=== PATIENT | female | born 1925 | race Caucasian/White ===

== ENCOUNTER 2017-01-12 20:19 | Inpatient (IN) | payer MEDICARE ==
--- NOTE | 2017-01-12 20:30 | ED ---
General Adult HPI - General Source: EMS Mode of arrival: EMS Limitations: no limitations <Heber Car - Last Filed: 01/12/17 20:41> <Emiliano Martinez - Last Filed: 01/12/17 21:47> - General Chief complaint: Shortness of Breath Stated complaint: PHUONG Time Seen by Provider: 01/12/17 20:20 - History of Present Illness Initial comments: 89-year-old female limited historian presents via EMS with shortness of breath. Per the old chart she has had a history of dementia hypertension and asthma. She's also had a history of hypothyroidism. From the report from EMS. Patient has had a history of cough for several days worsening treated with updrafts when he came in they found her to be short of breath she received 2 treatments and was given an IV dose of Solu-Medrol. Is unknown whether she's had a fever or not. Also history of atrial fibrillation the past (Heber Car) - Related Data Home Medications Medication Instructions Recorded Confirmed risperiDONE [RisperDAL] 1 mg PO HS 04/20/14 01/12/17 Budesonide [Pulmicort] 0.5 mg INHALATION RT-BID 03/16/15 01/12/17 Allopurinol [Zyloprim] 100 mg PO DAILY 11/26/15 01/12/17 PARoxetine HCL [Paxil] 30 mg PO HS 11/26/15 01/12/17 Pravastatin Sodium [Pravachol] 40 mg PO HS 11/26/15 06/09/16 Montelukast Sodium [Singulair] 10 mg PO HS 12/27/15 01/12/17 Levothyroxine Sodium [Synthroid] 75 mcg PO DAILY 05/20/16 01/12/17 Polyethylene Glycol 3350 17 gram PO DAILY 05/20/16 01/12/17 Metoprolol Succinate (ER) [Toprol 12.5 mg PO DAILY 06/09/16 01/12/17 XL] Aspirin 325 mg PO DAILY 01/12/17 01/12/17 Docusate [Colace] 100 mg PO DAILY 01/12/17 01/12/17 LORazepam [Ativan] 0.5 mg PO Q4H PRN 01/12/17 01/12/17 Omeprazole 20 mg PO DAILY 01/12/17 01/12/17 SILVER sulfADIAZINE CREAM 1 applic TOPICAL BID 01/12/17 01/12/17 [Silvadene Cream] guaiFENesin SYRUP 100MG/5ML 200 mg PO 01/12/17 [Robitussin] Previous Rx's Medication Instructions Recorded Apixaban [Eliquis] 2.5 mg PO BID #60 tablet 03/20/15 Azithromycin [Zithromax Z-pack] 0 mg PO DIRECTED #6 tab 06/11/16 Allergies Allergy/AdvReac Type Severity Reaction Status Date / Time codeine Allergy Rash/Hives Verified 06/09/16 19:40 Review of Systems ROS Other: All systems not noted in ROS Statement are negative. Limitations: ROS unobtainable due to patients medical condition <Heber Car - Last Filed: 01/12/17 20:41> ROS Other: All systems not noted in ROS Statement are negative. <Emiliano Martinez - Last Filed: 01/12/17 21:47> ROS Statement: Those systems with pertinent positive or pertinent negative responses have been documented in the HPI. Past Medical History Past Medical History: Asthma, CVA/TIA, Dementia, GERD/Reflux, Hearing Disorder / Deafness, Hyperlipidemia, Hypertension, Memory Impairment, Osteoarthritis (OA) , Pneumonia, Renal Disease, Respiratory Disorder, Skin Disorder, Syncope, Thyroid Disorder Additional Past Medical History / Comment(s): bronchitis, emphysema,arthritis in hands, tia x2, ckd/renal failure(per old hx-seizure), pulmonary fibrosis, SKIN CA TO LEFT UPPER ARM '15, FREQUENT UTI, HARD OF HEARING, BROKEN TEETH, GOUT History of Any Multi-Drug Resistant Organisms: None Reported Past Surgical History: Adenoidectomy, Appendectomy, Hysterectomy, Tonsillectomy Additional Past Surgical History / Comment(s): cataract sx rafael, SKIN CA REMOVED FROM LEFT UPPER ARM IN 2014 Past Anesthesia/Blood Transfusion Reactions: No Reported Reaction Additional Past Anesthesia/Blood Transfusion Reaction / Comment(s): claustraphobic Past Psychological History: No Psychological Hx Reported Additional Psychological History / Comment(s): dementia, PER PT'S DAUGHTER NO DX OF DEPRESSION BUT PT SLEEPS 19 OUT OF 24 HOURS A DAY,FALLS SLEEP WHEN UP IN CHAIR AND DROOLS A LOT. PT LIVES WITH DAUGHTER AND WAS GETTING UP WITH A 4 PRONG CANE AND W/C FOR DISTANCE. Smoking Status: Former smoker Past Alcohol Use History: Occasional Additional Past Alcohol Use History / Comment(s): started smoking at age 42 quit at age 62, used to smoke 1 ppd Past Drug Use History: None Reported - Past Family History Mother History Unknown: Yes Son(s) Family Medical History: Hypertension Sister(s) History Unknown: Yes Father Family Medical History: CVA/TIA <Heber Car - Last Filed: 01/12/17 20:41> General Exam Limitations: altered mental status (Dementia is not oriented to the place or time) General appearance: alert Head exam: Present: atraumatic Eye exam: Present: PERRL, EOMI ENT exam: Present: normal oropharynx, mucous membranes dry Neck exam: Present: normal inspection Respiratory exam: Present: wheezes, rales Cardiovascular Exam: Present: regular rate, tachycardia, normal heart sounds GI/Abdominal exam: Present: soft. Absent: tenderness, guarding Neurological exam: Present: alert, CN II-XII intact Psychiatric exam: Present: flat affect Skin exam: Present: warm, dry <Heber Car - Last Filed: 01/12/17 20:41> Medical Decision Making - EKG Data -: EKG Interpreted by Me <Heber Car - Last Filed: 01/12/17 20:41> - Lab Data Result diagrams: 01/12/17 20:37 01/12/17 20:37 <Emiliano Martinez - Last Filed: 01/12/17 21:47> - Medical Decision Making Chest x-ray shows upper lobe and middle lobe density on the right. I spoke with Dr. Hughes admitted the patient for pneumonia and wrote admitting orders. Continued Levaquin on the floor after given initial dose in the ER ( Emiliano Martinez) - Lab Data Lab Results 01/12/17 01/12/17 01/12/17 Range/Units 20:37 20:37 20:37 WBC 7.8 (3.8-10.6) k/uL RBC 3.49 L (3.80-5.40) m/uL Hgb 9.0 L (11.4-16.0) gm/dL Hct 30.5 L (34.0-46.0) % MCV 87.5 (80.0-100.0) fL MCH 25.7 (25.0-35.0) pg MCHC 29.4 L (31.0-37.0) g/dL RDW 15.1 (11.5-15.5) % Plt Count 219 (150-450) k/uL Neutrophils % 83 % Lymphocytes % 7 % Monocytes % 5 % Eosinophils % 1 % Basophils % 0 % Neutrophils # 6.5 (1.3-7.7) k/uL Lymphocytes # 0.5 L (1.0-4.8) k/uL Monocytes # 0.4 (0-1.0) k/uL Eosinophils # 0.1 (0-0.7) k/uL Basophils # 0.0 (0-0.2) k/uL Hypochromasia Marked PT (9.0-12.0) sec INR (<1.1) APTT (22.0-30.0) sec Sodium 139 (137-145) mmol/L Potassium 4.6 (3.5-5.1) mmol/L Chloride 100 (98-107) mmol/L Carbon Dioxide 30 (22-30) mmol/L Anion Gap 9 mmol/L BUN 20 H (7-17) mg/dL Creatinine 1.10 H (0.52-1.04) mg/dL Est GFR (MDRD) Af Amer 57 (>60 ml/min/1.73 sqM) Est GFR (MDRD) Non-Af 47 (>60 ml/min/1.73 sqM) Glucose 125 H (74-99) mg/dL Calcium 8.9 (8.4-10.2) mg/dL Total Bilirubin 0.3 (0.2-1.3) mg/dL AST 22 (14-36) U/L ALT 40 (9-52) U/L Alkaline Phosphatase 105 (38-126) U/L Total Creatine Kinase 64 (30-135) U/L CK-MB (CK-2) 0.8 (0.0-2.4) ng/mL CK-MB (CK-2) Rel Index 1.3 Troponin I <0.012 (0.000-0.034) ng/mL NT-Pro-B Natriuret Pep pg/mL Total Protein 6.6 (6.3-8.2) g/dL Albumin 3.5 (3.5-5.0) g/dL Urine Color Urine Appearance (Clear) Urine pH (5.0-8.0) Ur Specific [place] (1.001-1.035) Urine Protein (Negative) Urine Glucose (UA) (Negative) Urine Ketones (Negative) Urine Blood (Negative) Urine Nitrate (Negative) Urine Bilirubin (Negative) Urine Urobilinogen (<2.0) mg/dL Ur Leukocyte Esterase (Negative) Urine RBC (0-5) /hpf Urine WBC (0-5) /hpf Amorphous Sediment (None) /hpf Influenza Type A RNA (Not Detectd) Influenza Type B (PCR) (Not Detectd) 01/12/17 01/12/17 01/12/17 Range/Units 20:37 20:37 20:45 WBC (3.8-10.6) k/uL RBC (3.80-5.40) m/uL Hgb (11.4-16.0) gm/dL Hct (34.0-46.0) % MCV (80.0-100.0) fL MCH (25.0-35.0) pg MCHC (31.0-37.0) g/dL RDW (11.5-15.5) % Plt Count (150-450) k/uL Neutrophils % % Lymphocytes % % Monocytes % % Eosinophils % % Basophils % % Neutrophils # (1.3-7.7) k/uL Lymphocytes # (1.0-4.8) k/uL Monocytes # (0-1.0) k/uL Eosinophils # (0-0.7) k/uL Basophils # (0-0.2) k/uL Hypochromasia PT 10.3 (9.0-12.0) sec INR 1.0 (<1.1) APTT 23.4 (22.0-30.0) sec Sodium (137-145) mmol/L Potassium (3.5-5.1) mmol/L Chloride (98-107) mmol/L Carbon Dioxide (22-30) mmol/L Anion Gap mmol/L BUN (7-17) mg/dL Creatinine (0.52-1.04) mg/dL Est GFR (MDRD) Af Amer (>60 ml/min/1.73 sqM) Est GFR (MDRD) Non-Af (>60 ml/min/1.73 sqM) Glucose (74-99) mg/dL Calcium (8.4-10.2) mg/dL Total Bilirubin (0.2-1.3) mg/dL AST (14-36) U/L ALT (9-52) U/L Alkaline Phosphatase (38-126) U/L Total Creatine Kinase (30-135) U/L CK-MB (CK-2) (0.0-2.4) ng/mL CK-MB (CK-2) Rel Index Troponin I (0.000-0.034) ng/mL NT-Pro-B Natriuret Pep 637 pg/mL Total Protein (6.3-8.2) g/dL Albumin (3.5-5.0) g/dL Urine Color Yellow Urine Appearance Clear (Clear) Urine pH 6.5 (5.0-8.0) Ur Specific [place] 1.012 (1.001-1.035) Urine Protein 1+ H (Negative) Urine Glucose (UA) 1+ H (Negative) Urine Ketones Negative (Negative) Urine Blood Trace H (Negative) Urine Nitrate Negative (Negative) Urine Bilirubin Negative (Negative) Urine Urobilinogen <2.0 (<2.0) mg/dL Ur Leukocyte Esterase Negative (Negative) Urine RBC 4 (0-5) /hpf Urine WBC 1 (0-5) /hpf Amorphous Sediment Rare H (None) /hpf Influenza Type A RNA (Not Detectd) Influenza Type B (PCR) (Not Detectd) 01/12/17 Range/Units 20:50 WBC (3.8-10.6) k/uL RBC (3.80-5.40) m/uL Hgb (11.4-16.0) gm/dL Hct (34.0-46.0) % MCV (80.0-100.0) fL MCH (25.0-35.0) pg MCHC (31.0-37.0) g/dL RDW (11.5-15.5) % Plt Count (150-450) k/uL Neutrophils % % Lymphocytes % % Monocytes % % Eosinophils % % Basophils % % Neutrophils # (1.3-7.7) k/uL Lymphocytes # (1.0-4.8) k/uL Monocytes # (0-1.0) k/uL Eosinophils # (0-0.7) k/uL Basophils # (0-0.2) k/uL Hypochromasia PT (9.0-12.0) sec INR (<1.1) APTT (22.0-30.0) sec Sodium (137-145) mmol/L Potassium (3.5-5.1) mmol/L Chloride (98-107) mmol/L Carbon Dioxide (22-30) mmol/L Anion Gap mmol/L BUN (7-17) mg/dL Creatinine (0.52-1.04) mg/dL Est GFR (MDRD) Af Amer (>60 ml/min/1.73 sqM) Est GFR (MDRD) Non-Af (>60 ml/min/1.73 sqM) Glucose (74-99) mg/dL Calcium (8.4-10.2) mg/dL Total Bilirubin (0.2-1.3) mg/dL AST (14-36) U/L ALT (9-52) U/L Alkaline Phosphatase (38-126) U/L Total Creatine Kinase (30-135) U/L CK-MB (CK-2) (0.0-2.4) ng/mL CK-MB (CK-2) Rel Index Troponin I (0.000-0.034) ng/mL NT-Pro-B Natriuret Pep pg/mL Total Protein (6.3-8.2) g/dL Albumin (3.5-5.0) g/dL Urine Color Urine Appearance (Clear) Urine pH (5.0-8.0) Ur Specific [place] (1.001-1.035) Urine Protein (Negative) Urine Glucose (UA) (Negative) Urine Ketones (Negative) Urine Blood (Negative) Urine Nitrate (Negative) Urine Bilirubin (Negative) Urine Urobilinogen (<2.0) mg/dL Ur Leukocyte Esterase (Negative) Urine RBC (0-5) /hpf Urine WBC (0-5) /hpf Amorphous Sediment (None) /hpf Influenza Type A RNA Not Detected (Not Detectd) Influenza Type B (PCR) Not Detected (Not Detectd) 01/12/17 20:29 EKG 01/12/20172026 ventricular rate 100 bpm, SC interval 168 ms, QRS duration 90 ms, QT interval 330 ms sinus tachycardia of left ventricular hypertrophy with repolarization abnormality (Heber Car) Disposition <Heber Car - Last Filed: 01/12/17 20:41> Time of Disposition: 21:47 <Emiliano Martinez - Last Filed: 01/12/17 21:47> Clinical Impression: Pneumonia Disposition: ADMITTED IP TO THIS HOSP
[2017-01-12 20:49] LABS: Basophils % (A) 0 %; CH 25.2; CHCM 28.8; Eosinophils # (A) 0.1 k/uL (0-0.7); Eosinophils % (A) 1 %; HCT 30.5 % (34.0-46.0); HDW 2.95; Hypochromasia Marked; Luc # (Auto) 0.28; Luc % (Auto) 4; Lymphocytes # (A) 0.5 k/uL (1.0-4.8); Lymphocytes % (A) 7 %; MCH 25.7 pg (25.0-35.0); MCHC 29.4 g/dL (31.0-37.0); MCV 87.5 fL (80.0-100.0); Monocytes # (A) 0.4 k/uL (0-1.0); Monocytes % (A) 5 %; Neutrophils # (A) 6.5 k/uL (1.3-7.7); Neutrophils % (A) 83 %; RBC 3.49 m/uL (3.80-5.40); RDW 15.1 % (11.5-15.5); WBC 7.8 k/uL (3.8-10.6); WBC (Perox) 8.32
[2017-01-12 21:02] LABS: Calcium 8.9 mg/dL (8.4-10.2); Potassium 4.6 mmol/L (3.5-5.1); Total Bilirubin 0.3 mg/dL (0.2-1.3); Total Protein 6.6 g/dL (6.3-8.2)
[2017-01-12 21:04] LABS: Amorphous Sediment,Urine Rare /hpf; Appearance,Urine Clear (Clear); Bilirubin,Urine Negative (Negative); Glucose,Urine (UA) 1+ (Negative); Ketones,Urine Negative (Negative); Leukocyte Esterase,Urine Negative (Negative); Nitrite,Urine Negative (Negative); PH, Urine 6.5 (5.0-8.0); Particle Count 1155; Protein,Urine 1+ (Negative); RBC,Urine 4 /hpf (0-5); Specific Gravity,Urine 1.012 (1.001-1.035); UA Billing (MACRO vs. MICRO) MICRO; Urobilinogen,Urine <2.0 mg/dL (<2.0); WBC,Urine 1 /hpf (0-5)
--- NOTE | 2017-01-12 21:08 | XR ---
EXAMINATION TYPE: XR chest 2V DATE OF EXAM: 01/12/2017 9:02 PM COMPARISON: 06/09/2016 HISTORY: Shortness of breath TECHNIQUE: Frontal and lateral views of the chest are obtained. FINDINGS: Scattered senescent parenchymal changes noted. Hyperinflation compatible with COPD. Patchy density right upper lobe as well as right medial lung base may reflect developing infiltrate. Correlate clinically. Heart size is stable. Mediastinal structures are stable and grossly unremarkable. No evidence for hilar prominence. Degenerative changes dorsal spine. IMPRESSION: 1. Patchy density right upper lobe as well as right medial lung base may reflect developing infiltra te. Correlate clinically.
[2017-01-12 21:10] LABS: Creatine Kinase 64 U/L (30-135); Partial Thromboplastin Time 23.4 sec (22.0-30.0); Prothrombin Time 10.3 sec (9.0-12.0)
[2017-01-12 21:22] LABS: Creatine Kinase MB 0.8 ng/mL (0.0-2.4); Troponin I <0.012 ng/mL (0.000-0.034)
[2017-01-12] MEDS ORDERED: LEVOFLOXACIN 750MG-D5W PMX 750 MG in DEXTROSE/WATER 1 150ML.BAG IVPB STA (21:46)
[2017-01-12] MEDS ORDERED: PNEUMONIA PROTOCOL UTILIZED 1 EACH MISC PO PRN (21:47)
[2017-01-13] MEDS: methylPREDNISolone SOD SUCCI 125 MG/2 ML VIAL IV SCH ×2 (01:45→05:05)
[2017-01-13] MEDS: IPRATROPIUM-ALBUTEROL 3 ML NEB INHALATION PRN ×3 (05:24→23:19)
[2017-01-13] MEDS ORDERED: BUDESONIDE 0.5 MG/2 ML NEBU INHALATION SCH (08:00)
[2017-01-13] MEDS ORDERED: DOCUSATE 100 MG CAP PO PRN (10:24)
[2017-01-13] MEDS ORDERED: ARTIFICIAL TEARS-HYPROMELLOSE DROPS 15 ML BTL BOTH EYES PRN (10:24)
[2017-01-13] MEDS ORDERED: guaiFENesin SYRUP 100MG/5ML 200 MG/10 ML CUP PO PRN (10:24)
[2017-01-13] MEDS ORDERED: ACETAMINOPHEN TAB 325 MG TAB PO PRN (10:26)
[2017-01-13] MEDS ORDERED: Magnesium Replacement Protocol 1 EACH MISC MISCELLANE PRN (10:26)
[2017-01-13] MEDS ORDERED: Potassium Replacement Protocol 1 EACH MISC MISCELLANE PRN (10:26)
[2017-01-13] MEDS ORDERED: ONDANSETRON 4 MG/2 ML VIAL IVP PRN ×2 (10:26→16:51)
[2017-01-13 10:32] VITALS: BMI 25.9
[2017-01-13 12:02] LABS: Glucose,Whole Blood 159 mg/dL (75-99)
[2017-01-13] MEDS: IPRATROPIUM-ALBUTEROL 3 ML NEB INHALATION SCH ×3 (13:07→20:33)
--- NOTE | 2017-01-13 15:05 | XR ---
EXAMINATION TYPE: XR chest 2V DATE OF EXAM: 01/13/2017 2:23 PM COMPARISON: 01/12/2017 TECHNIQUE: PA and lateral views submitted. HISTORY: Difficulty breathing FINDINGS: Persistent interstitial pattern seen with elevated right hemidiaphragm. Arthropathy of the shoulders noted. Heart size stable. Atherosclerotic change aorta. Apical pleural thickening. IMPRESSION: 1. Improvement in the area of patchy infiltrate in the right upper lobe 2. Persistent interstitial pattern correlate for pneumonitis or early venous congestion.
[2017-01-13] MEDS: INSULIN LISPRO (humaLOG) 300 UNIT/3 ML VIAL SQ SCH ×2 (15:58→18:10)
--- NOTE | 2017-01-13 16:50 | P.HPIM ---
History of Present Illness H&P Date: 01/13/17 Chief Complaint: Shortness of breath and cough This is a 89-year-old female with past medical history noted below significant for advanced dementia there is a very poor historian. Most of the history was obtained by chart review and nursing staff report. Apparently patient was having worsening shortness of breath and cough for the past several days. She said that her cough is productive mostly of yellowish sputum. She was evaluated in the emergency room and chest x-ray showed evidence of right lower lobe infiltrate. Patient was started on IV antibiotic and was admitted to the hospital for further evaluation. She was noted to have wheezing and subsequently started on IV Solu-Medrol. She is feeling relatively better when I saw her. She is awake and alert. No documented fever. Review of Systems Review of system: 14 points review of systems were obtained and were negative except to what were mentioned in the HPI. Past Medical History Past Medical History: Asthma, CVA/TIA, Dementia, GERD/Reflux, Hearing Disorder / Deafness, Hyperlipidemia, Hypertension, Memory Impairment, Osteoarthritis (OA) , Pneumonia, Renal Disease, Respiratory Disorder, Skin Disorder, Syncope, Thyroid Disorder Additional Past Medical History / Comment(s): bronchitis, emphysema,arthritis in hands, tia x2, ckd/renal failure(per old hx-seizure), pulmonary fibrosis, SKIN CA TO LEFT UPPER ARM '15, FREQUENT UTI, HARD OF HEARING, BROKEN TEETH, GOUT History of Any Multi-Drug Resistant Organisms: None Reported Past Surgical History: Adenoidectomy, Appendectomy, Hysterectomy, Tonsillectomy Additional Past Surgical History / Comment(s): cataract sx rafael, SKIN CA REMOVED FROM LEFT UPPER ARM IN 2014 Past Anesthesia/Blood Transfusion Reactions: No Reported Reaction Additional Past Anesthesia/Blood Transfusion Reaction / Comment(s): claustraphobic Past Psychological History: No Psychological Hx Reported Additional Psychological History / Comment(s): dementia, PER PT'S DAUGHTER NO DX OF DEPRESSION BUT PT SLEEPS 19 OUT OF 24 HOURS A DAY,FALLS SLEEP WHEN UP IN CHAIR AND DROOLS A LOT. Smoking Status: Former smoker Past Alcohol Use History: Occasional Additional Past Alcohol Use History / Comment(s): started smoking at age 42 quit at age 62, used to smoke 1 ppd Past Drug Use History: None Reported - Past Family History Mother History Unknown: Yes Son(s) Family Medical History: Hypertension Sister(s) History Unknown: Yes Father Family Medical History: CVA/TIA Medications and Allergies Home Medications Medication Instructions Recorded Confirmed Type risperiDONE [RisperDAL] 1 mg PO HS@199904/20/14 01/13/17 History Budesonide [Pulmicort] 0.5 mg INHALATION RT-BID@799,199903/16/15 01/13/17 History Allopurinol [Zyloprim] 100 mg PO DAILY 11/26/15 01/13/17 History PARoxetine HCL [Paxil] 30 mg PO HS@199911/26/15 01/13/17 History Montelukast Sodium [Singulair] 10 mg PO HS@199912/27/15 01/13/17 History Levothyroxine Sodium [Synthroid] 75 mcg PO DAILY 05/20/16 01/13/17 History Polyethylene Glycol 3350 17 gram PO HS 05/20/16 01/13/17 History Metoprolol Succinate (ER) [Toprol 12.5 mg PO DAILY 06/09/16 01/13/17 History XL] Aspirin 325 mg PO DAILY@199901/12/17 01/13/17 History Docusate [Colace] 100 mg PO DAILY PRN 01/12/17 01/13/17 History Omeprazole 20 mg PO DAILY 01/12/17 01/13/17 History SILVER sulfADIAZINE CREAM 1 applic TOPICAL BID@799,199901/12/17 01/13/17 History [Silvadene Cream] guaiFENesin SYRUP 100MG/5ML 200 mg PO Q4H PRN 01/12/17 01/13/17 History [Robitussin] Acetaminophen Suppository [Tylenol 650 mg RECTAL Q4H PRN 01/13/17 01/13/17 History Suppository] Albuterol Nebulized [Ventolin 2.5 mg INHALATION RT-QID PRN 01/13/17 01/13/17 History Nebulized] Artificial Tears-Hypromellose 2 drops BOTH EYES Q2H PRN 01/13/17 01/13/17 History [Artificial Tear Drops] Atropine Sulfate [Atropine Sulfate 2 drop SUBLINGUAL Q4H PRN 01/13/17 01/13/17 History 1%] Bisacodyl [Dulcolax] 10 mg RECTAL Q3H PRN 01/13/17 01/13/17 History Donepezil HCl [Aricept ODT] 10 mg PO DAILY 01/13/17 01/13/17 History LORazepam ORAL CONC [Ativan 0.5 mg PO Q4H PRN 01/13/17 01/13/17 History Intensol] Morphine Oral Soln [Roxanol Oral 5 mg PO Q1H PRN 01/13/17 01/13/17 History Soln Conc 20MG/ML] Allergies Allergy/AdvReac Type Severity Reaction Status Date / Time codeine Allergy Rash/Hives Verified 01/13/17 08:12 Physical Exam Vitals: Vital Signs Temp Pulse Pulse Pulse Pulse Resp BP 01/13/17 16:45 68 01/13/17 15:46 87 01/13/17 14:58 98.1 F 115 H 17 01/13/17 13:15 76 01/13/17 13:07 72 01/13/17 09:16 72 01/13/17 09:00 72 01/13/17 07:31 97.4 F L 75 18 01/13/17 05:33 69 01/13/17 05:24 64 01/13/17 03:40 97.5 F L 79 18 01/12/17 22:21 92 24 134/62 01/12/17 22:05 98.5 F 96 20 01/12/17 21:55 104 H 24 148/65 BP Pulse Ox 01/13/17 16:45 01/13/17 15:46 01/13/17 14:58 179/77 98 01/13/17 13:15 01/13/17 13:07 01/13/17 09:16 01/13/17 09:00 01/13/17 07:31 146/77 96 01/13/17 05:33 01/13/17 05:24 01/13/17 03:40 133/73 98 01/12/17 22:21 99 01/12/17 22:05 131/73 99 01/12/17 21:55 100 Intake and Output 01/13/17 01/13/17 01/13/17 06:59 14:59 22:59 Intake Total 100 240 Balance 100 240 Intake: Oral 100 240 Other: Voiding Method Diaper Diaper # Voids 1 1 Weight 64.41 kg Patient Weight 01/14/17 06:59 Weight 64.41 kg General: The patient is awake and alert, in no distress Eye: there is normal conjunctiva bilaterally. Neck: The neck is supple, there is no JVD. Cardiovascular: Normal S1-S2, no S3-S4, no murmurs. Respiratory: Lungs with scattered rales all over the chest Gastrointestinal: Abdomen is soft, nontender Musculoskeletal: There is +1 pedal edema. Skin: Skin is warm and dry Results CBC & Chem 7: 01/12/17 20:37 01/12/17 20:37 Labs: Abnormal Lab Results - Last 24 Hours (Table) 01/13/17 Range/Units 12:00 POC Glucose (mg/dL) 159 H (75-99) mg/dL Thrombosis Risk Factor Assmnt - Choose All That Apply Any of the Below Risk Factors Present?: Yes Each Factor Represents 1 point: Medical pt on bed rest, Serious lung disease incl. pneumonia (< 1month) Other Risk Factors: Yes Each Risk Factor Represents 3 Points: Age 75 years or older Thrombosis Risk Factor Assessment Total Risk Factor Score: 5 Thrombosis Risk Factor Assessment Level: High Risk Assessment and Plan Plan: 1. Right lower lobe pneumonia: On antibiotic with Levaquin. Blood culture pending. 2. Reactive airway disease with audible wheezing: Currently on IV Solu-Medrol. Continue bronchodilators. 3. Acute hypoxic respiratory failure requiring O2 supplement secondary to #1 and 2 4. Underlying dementia, advanced 5. History of paroxysmal atrial fibrillation not a candidate for anticoagulation 6. Hypothyroidism: On levothyroxin 7. Mixed hyperlipidemia 8. DVT prophylaxis with subcu heparin Today, I reviewed her medication list. Continue current regimen. We will continue supportive care otherwise. Repeat lab work in the morning. PT/OT evaluation.
[2017-01-13] MEDS: methylPREDNISolone SOD SUCCI 40 MG/ML 1 ML VIAL IV SCH (17:13)
[2017-01-13 18:05] LABS: Glucose,Whole Blood 147 mg/dL (75-99)
[2017-01-13] MEDS: BUDESONIDE 0.5 MG/2 ML NEBU INHALATION SCH (20:33)
[2017-01-13] MEDS ORDERED: LEVOFLOXACIN 750MG-D5W PMX 750 MG in DEXTROSE/WATER 1 150ML.BAG IVPB SCH (21:00)
[2017-01-13] MEDS: POLYETHYLENE GLYCOL 3350 17 GM POWD.PACK PO SCH (21:02)
[2017-01-13] MEDS: PARoxetine 10 MG TAB PO SCH (21:04)
[2017-01-13] MEDS: MONTELUKAST 10 MG TAB PO SCH (21:04)
[2017-01-13] MEDS: risperiDONE 1 MG TAB PO SCH (21:04)
[2017-01-13] MEDS: ASPIRIN 325 MG TAB PO SCH (21:04)
[2017-01-13] MEDS: HEPARIN SODIUM,PORCINE 5,000 UNIT/ML 1 ML VIAL SQ SCH (21:04)
[2017-01-14 00:13] LABS: Glucose,Whole Blood 148 mg/dL (75-99)
[2017-01-14] MEDS: methylPREDNISolone SOD SUCCI 40 MG/ML 1 ML VIAL IV SCH ×2 (00:27→08:17)
[2017-01-14] MEDS: INSULIN LISPRO (humaLOG) 300 UNIT/3 ML VIAL SQ SCH ×5 (00:27→21:55)
[2017-01-14] MEDS: IPRATROPIUM-ALBUTEROL 3 ML NEB INHALATION PRN (03:26)
[2017-01-14 06:01] LABS: Glucose,Whole Blood 127 mg/dL (75-99)
[2017-01-14] MEDS: LEVOTHYROXINE 75 MCG TAB PO SCH (06:12)
[2017-01-14 06:43] LABS: Basophils % (A) 0 %; CH 25.1; CHCM 28.8; Eosinophils % (A) 0 %; HCT 26.8 % (34.0-46.0); HDW 2.94; HGB 7.8 gm/dL (11.4-16.0); Hypochromasia Marked; Luc # (Auto) 0.12; Luc % (Auto) 2; Lymphocytes # (A) 0.3 k/uL (1.0-4.8); Lymphocytes % (A) 4 %; MCH 25.3 pg (25.0-35.0); MCHC 29.1 g/dL (31.0-37.0); MCV 86.9 fL (80.0-100.0); Mean Platelet Volume 8.9; Monocytes # (A) 0.3 k/uL (0-1.0); Monocytes % (A) 4 %; Neutrophils # (A) 5.7 k/uL (1.3-7.7); Neutrophils % (A) 90 %; RBC 3.09 m/uL (3.80-5.40); RDW 15.2 % (11.5-15.5); WBC 6.3 k/uL (3.8-10.6)
[2017-01-14 07:01] LABS: Calcium 9.1 mg/dL (8.4-10.2); Magnesium 1.9 mg/dL (1.6-2.3); Potassium 4.8 mmol/L (3.5-5.1)
[2017-01-14] MEDS: IPRATROPIUM-ALBUTEROL 3 ML NEB INHALATION SCH ×4 (07:40→19:40)
[2017-01-14] MEDS: BUDESONIDE 0.5 MG/2 ML NEBU INHALATION SCH ×2 (07:40→19:40)
[2017-01-14] MEDS: DONEPEZIL 10 MG TAB PO SCH (08:18)
[2017-01-14] MEDS: PANTOPRAZOLE 40 MG TABLET PO SCH (08:18)
[2017-01-14] MEDS: METOPROLOL SUCCINATE (ER) 25 MG TAB.ER.24H PO SCH (08:19)
[2017-01-14] MEDS: ALLOPURINOL 100 MG TAB PO SCH (08:19)
[2017-01-14] MEDS: HEPARIN SODIUM,PORCINE 5,000 UNIT/ML 1 ML VIAL SQ SCH ×2 (08:19→20:52)
[2017-01-14 08:53] LABS: Hemoglobin A1C 5.7 % (4.2-6.1)
[2017-01-14 11:28] LABS: Glucose,Whole Blood 122 mg/dL (75-99)
--- NOTE | 2017-01-14 13:11 | P.PN ---
Subjective Principal diagnosis: Pneumonia Patient is doing well today. She is complaining of persistent cough. No shortness of breath reported. Objective - Vital Signs Vital signs: Vital Signs Temp 97.6 F 01/14/17 07:00 Pulse 100 01/14/17 12:02 Resp 16 01/14/17 08:00 BP 142/67 01/14/17 10:24 Pulse Ox 99 01/14/17 07:40 Intake & Output 01/13/17 01/14/17 01/14/17 18:59 06:59 18:59 Intake Total 240 360 Output Total 400 Balance 240 -40 Weight 64.41 kg 64.41 kg Intake: Oral 240 360 Output: Urine 400 Other: Voiding Method Diaper Diaper Diaper # Voids 1 1 1 # Bowel Movements 1 1 - Exam General: The patient is awake and alert, in no distress Eye: there is normal conjunctiva bilaterally. Neck: The neck is supple, there is no JVD. Cardiovascular: Normal S1-S2, no S3-S4, no murmurs. Respiratory: Lungs with mild end expiratory wheezing Gastrointestinal: Abdomen is soft, nontender Musculoskeletal: There is no pedal edema. Neurological:. Speech is normal. Skin: Skin is warm and dry - Labs CBC & Chem 7: 01/14/17 06:19 01/14/17 06:19 Labs: Abnormal Lab Results - Last 24 Hours (Table) 01/13/17 01/14/17 01/14/17 Range/Units 18:04 00:05 05:53 RBC (3.80-5.40) m/uL Hgb (11.4-16.0) gm/dL Hct (34.0-46.0) % MCHC (31.0-37.0) g/dL Lymphocytes # (1.0-4.8) k/uL BUN (7-17) mg/dL Creatinine (0.52-1.04) mg/dL Glucose (74-99) mg/dL POC Glucose (mg/dL) 147 H 148 H 127 H (75-99) mg/dL 01/14/17 01/14/17 01/14/17 Range/Units 06:19 06:19 11:21 RBC 3.09 L (3.80-5.40) m/uL Hgb 7.8 L (11.4-16.0) gm/dL Hct 26.8 L (34.0-46.0) % MCHC 29.1 L (31.0-37.0) g/dL Lymphocytes # 0.3 L (1.0-4.8) k/uL BUN 32 H (7-17) mg/dL Creatinine 1.15 H (0.52-1.04) mg/dL Glucose 124 H (74-99) mg/dL POC Glucose (mg/dL) 122 H (75-99) mg/dL Assessment and Plan Plan: 1. Right lower lobe pneumonia: On antibiotic with Levaquin. Blood culture negative to date 2. Reactive airway disease with audible wheezing: Currently on IV Solu-Medrol. Continue bronchodilators. 3. Acute hypoxic respiratory failure requiring O2 supplement secondary to #1 and 2 4. Underlying dementia, advanced 5. History of paroxysmal atrial fibrillation not a candidate for anticoagulation 6. Hypothyroidism: On levothyroxin 7. Mixed hyperlipidemia 8. DVT prophylaxis with subcu heparin 9. Patient is full code Today, I reviewed her medication list. Continue current regimen. Off medication ordered. We will continue supportive care otherwise. Repeat lab work in the morning. PT/OT evaluation.
[2017-01-14] MEDS: guaiFENesin 600 MG TABLET.ER PO SCH ×2 (13:54→20:53)
[2017-01-14 16:23] LABS: Glucose,Whole Blood 126 mg/dL (75-99)
[2017-01-14] MEDS: LEVOFLOXACIN 750MG-D5W PMX 750 MG in DEXTROSE/WATER 1 150ML.BAG IVPB SCH (16:52)
[2017-01-14 20:31] LABS: Glucose,Whole Blood 110 mg/dL (75-99)
[2017-01-14] MEDS: MONTELUKAST 10 MG TAB PO SCH (20:52)
[2017-01-14] MEDS: risperiDONE 1 MG TAB PO SCH (20:52)
[2017-01-14] MEDS: POLYETHYLENE GLYCOL 3350 17 GM POWD.PACK PO SCH (20:52)
[2017-01-14] MEDS: PARoxetine 10 MG TAB PO SCH (20:52)
[2017-01-14] MEDS: ASPIRIN 325 MG TAB PO SCH (20:53)
[2017-01-15] MEDS: IPRATROPIUM-ALBUTEROL 3 ML NEB INHALATION PRN (02:40)
[2017-01-15] MEDS: LEVOTHYROXINE 75 MCG TAB PO SCH (05:40)
[2017-01-15 07:16] LABS: Basophils % (A) 0 %; CH 24.7; CHCM 28.3; Eosinophils % (A) 0 %; HCT 27.5 % (34.0-46.0); Hypochromasia Marked; Luc # (Auto) 0.21; Luc % (Auto) 2; Lymphocytes % (A) 10 %; MCH 25.4 pg (25.0-35.0); MCHC 29.1 g/dL (31.0-37.0); MCV 87.3 fL (80.0-100.0); Mean Platelet Volume 7.7; Monocytes # (A) 0.5 k/uL (0-1.0); Monocytes % (A) 5 %; Neutrophils # (A) 8.2 k/uL (1.3-7.7); Neutrophils % (A) 83 %; RBC 3.15 m/uL (3.80-5.40); RDW 15.2 % (11.5-15.5); WBC 9.9 k/uL (3.8-10.6); WBC (Perox) 10.36
[2017-01-15 07:41] LABS: Magnesium 1.8 mg/dL (1.6-2.3); Potassium 4.6 mmol/L (3.5-5.1)
[2017-01-15 07:48] LABS: Glucose,Whole Blood 79 mg/dL (75-99)
[2017-01-15] MEDS: INSULIN LISPRO (humaLOG) 300 UNIT/3 ML VIAL SQ SCH ×4 (07:48→20:50)
[2017-01-15] MEDS: BUDESONIDE 0.5 MG/2 ML NEBU INHALATION SCH ×2 (08:05→19:14)
[2017-01-15] MEDS: IPRATROPIUM-ALBUTEROL 3 ML NEB INHALATION SCH ×6 (08:05→23:44)
[2017-01-15] MEDS: HEPARIN SODIUM,PORCINE 5,000 UNIT/ML 1 ML VIAL SQ SCH ×2 (08:47→19:49)
[2017-01-15] MEDS: DONEPEZIL 10 MG TAB PO SCH (08:47)
[2017-01-15] MEDS: guaiFENesin 600 MG TABLET.ER PO SCH ×2 (08:47→19:49)
[2017-01-15] MEDS: ALLOPURINOL 100 MG TAB PO SCH (08:47)
[2017-01-15] MEDS: PANTOPRAZOLE 40 MG TABLET PO SCH (08:48)
[2017-01-15] MEDS: METOPROLOL SUCCINATE (ER) 25 MG TAB.ER.24H PO SCH (08:48)
[2017-01-15] MEDS ORDERED: predniSONE 20 MG TAB PO SCH (09:00)
--- NOTE | 2017-01-15 10:51 | CDI ---
In responding to this query, please exercise your independent professional judgment. The [facility] Coding Staff and Clinical Documentation Specialists appreciate your assistance in clarifying documentation, maintaining compliance with coding guidelines, accurately documenting patients condition and capturing severity of illness. The fact that a question is asked does not imply that any particular answer is desired or expected. Communication forms are a method of clarifying documentation and are not made part of the Legal Health Record. Thank you in advance for your clarification. Last Revision, January 2016 Jojo Crowe [address] [place] [address] Documentation Clarification Form Date: 01/15/2017 10:42:00 AM From: Ksenia Portillo CCS, CCDS Admit Date: 01/12/2017 9:47:00 PM Patient Name: Porsche Duarte Visit Number: [id number] Discharge Date: Dr. Dianne Pereyra: Asthma is documented in the ER note & H/P as a history of. Per the H/P diagnosis & the 01/14 progress note diagnosis: Reactive airway disease with audible wheezing: Currently on IV Solu-Medrol. Patient history/risk factors: Former smoker, History of Asthma nos, CVA, Hypertension, previous pneumonia & CKD. Clinical Indicators: Wheezing, rales, SOB Admission VS: T 99.5, P 107, R 28 (sob, accessory muscle use), BP 191/84 & PO 92 3Lnc Radiology: CXR: Patchy density RUL & right medial lung base, may reflect developing infiltrate. Treatment: IV Levaquin, Albuterol INH, IV Solumedrol, O2 2Lnc In your professional opinion, can you please further specify the following, if known? With Acute Exacerbation Status asthmaticus Acute lower respiratory infection COPD (specify with or without exacerbation) Chronic obstructive bronchitis Other, please specify Unable to determine Severity Mild intermittent Mild persistent Moderate persistent Severe persistent Other, please specify ____ Unable to determine Form or Type Cough variant Childhood Exercise induced bronchospasm Extrinsic allergic Idiosyncratic Intrinsic nonallergic Late-onset Mixed Other, please specify Unable to determine Please document in your progress notes and discharge summary in order to capture severity of illness and risk of mortality. Include clinical findings that support your diagnosis. FYI: Press F11 to launch patient chart. Place X here if this finding has no clinical significance, is not applicable or if you are not able to provide any additional documentation. Thank you. MICHELLE
[2017-01-15 11:14] LABS: Glucose,Whole Blood 105 mg/dL (75-99)
--- NOTE | 2017-01-15 16:53 | P.PN ---
Subjective Principal diagnosis: Pneumonia Patient said that her cough is slightly better. She continued to have some wheezing. Objective - Vital Signs Vital signs: Vital Signs Temp 97.7 F 01/15/17 13:48 Pulse 79 01/15/17 16:00 Resp 15 01/15/17 16:00 BP 138/68 01/15/17 13:48 Pulse Ox 96 01/15/17 13:48 Intake & Output 01/14/17 01/15/17 01/15/17 18:59 06:59 18:59 Intake Total 700 100 360 Output Total 402 400 Balance 298 100 -40 Weight 64.41 kg 64.41 kg Intake: IV 100 Levofloxacin 750Mg-D5w 100 Pmx 750 mg In Dextrose/ Water 1 150ml.bag @ 100 mls/hr IVPB Q48H [facility] Rx#: [id number] Oral 700 360 Output: Urine 402 400 Other: Voiding Method Diaper Diaper Diaper # Voids 1 2 3 # Bowel Movements 1 1 - Exam General: The patient is awake and alert, in no distress Eye: there is normal conjunctiva bilaterally. Neck: The neck is supple, there is no JVD. Cardiovascular: Normal S1-S2, no S3-S4, no murmurs. Respiratory: Lungs with mild end expiratory wheezing Gastrointestinal: Abdomen is soft, nontender Musculoskeletal: There is no pedal edema. Neurological:. Speech is normal. Skin: Skin is warm and dry - Labs CBC & Chem 7: 01/15/17 06:50 01/15/17 06:47 Labs: Abnormal Lab Results - Last 24 Hours (Table) 01/14/17 01/15/17 01/15/17 Range/Units 20:30 06:47 06:50 RBC 3.15 L (3.80-5.40) m/uL Hgb 8.0 L (11.4-16.0) gm/dL Hct 27.5 L (34.0-46.0) % MCHC 29.1 L (31.0-37.0) g/dL Neutrophils # 8.2 H (1.3-7.7) k/uL Carbon Dioxide 31 H (22-30) mmol/L BUN 38 H (7-17) mg/dL Creatinine 1.12 H (0.52-1.04) mg/dL POC Glucose (mg/dL) 110 H (75-99) mg/dL 01/15/17 Range/Units 11:05 RBC (3.80-5.40) m/uL Hgb (11.4-16.0) gm/dL Hct (34.0-46.0) % MCHC (31.0-37.0) g/dL Neutrophils # (1.3-7.7) k/uL Carbon Dioxide (22-30) mmol/L BUN (7-17) mg/dL Creatinine (0.52-1.04) mg/dL POC Glucose (mg/dL) 105 H (75-99) mg/dL Assessment and Plan Plan: 1. Right lower lobe pneumonia: On antibiotic with Levaquin. Blood culture negative to date 2. Acute COPD exacerbation Continue bronchodilators and steroids as ordered 3. Acute hypoxic respiratory failure requiring O2 supplement secondary to #1 and 2 4. Underlying dementia, advanced 5. History of paroxysmal atrial fibrillation not a candidate for anticoagulation 6. Hypothyroidism: On levothyroxin 7. Mixed hyperlipidemia 8. DVT prophylaxis with subcu heparin 9. Patient is DO NOT RESUSCITATE/DO NOT INTUBATE Today, I reviewed her medication list. Continue current regimen. Increase bronchodilators to every 4 hours. We will continue supportive care otherwise. Repeat lab work in the morning. PT/OT evaluation.
[2017-01-15 17:25] LABS: Glucose,Whole Blood 152 mg/dL (75-99)
[2017-01-15] MEDS: risperiDONE 1 MG TAB PO SCH (19:49)
[2017-01-15] MEDS: POLYETHYLENE GLYCOL 3350 17 GM POWD.PACK PO SCH (19:49)
[2017-01-15] MEDS: ASPIRIN 325 MG TAB PO SCH (19:49)
[2017-01-15] MEDS: MONTELUKAST 10 MG TAB PO SCH (19:49)
[2017-01-15 20:17] LABS: Glucose,Whole Blood 161 mg/dL (75-99)
[2017-01-15] MEDS: PARoxetine 10 MG TAB PO SCH (20:50)
--- NOTE | 2017-01-15 22:45 | XR ---
EXAM: XR Chest, 2 Views. CLINICAL HISTORY: Reason: pneumonia TECHNIQUE: Frontal and lateral views of the chest. COMPARISON: 06/09/2016 FINDINGS: Lungs: No focal consolidation. Bilateral interstitial prominence is nonspecific and can be seen in the setting of mild interstitial edema or chronic interstitial lung disease. Pleural space: Unremarkable. No pneumothorax. Heart: Stable cardiomediastinal silhouette. Mediastinum: See above. Bones/joints: No acute osseous abnormality. Upper abdomen: Persistent elevation of the right hemidiaphragm. IMPRESSION: No focal consolidation. Bilateral interstitial prominence is nonspecific and can be seen in the setting of mild interstitial edema or chronic interstitial lung disease.
[2017-01-15] MEDS: methylPREDNISolone SOD SUCCI 125 MG/2 ML VIAL IVP SCH (23:30)
[2017-01-16] MEDS: IPRATROPIUM-ALBUTEROL 3 ML NEB INHALATION SCH ×5 (03:42→20:43)
[2017-01-16] MEDS: methylPREDNISolone SOD SUCCI 125 MG/2 ML VIAL IVP SCH ×2 (04:56→11:33)
[2017-01-16] MEDS: LEVOTHYROXINE 75 MCG TAB PO SCH (04:56)
[2017-01-16 07:16] LABS: Glucose,Whole Blood 134 mg/dL (75-99)
[2017-01-16] MEDS: INSULIN LISPRO (humaLOG) 300 UNIT/3 ML VIAL SQ SCH ×4 (07:19→23:34)
[2017-01-16 08:30] LABS: Basophils % (A) 0 %; Eosinophils % (A) 0 %; HCT 30.5 % (34.0-46.0); HDW 2.89; HGB 9.1 gm/dL (11.4-16.0); Hypochromasia Marked; Luc # (Auto) 0.07; Luc % (Auto) 1; Lymphocytes # (A) 0.4 k/uL (1.0-4.8); Lymphocytes % (A) 5 %; MCH 25.7 pg (25.0-35.0); MCHC 29.8 g/dL (31.0-37.0); MCV 86.3 fL (80.0-100.0); Mean Platelet Volume 8.7; Monocytes # (A) 0.2 k/uL (0-1.0); Monocytes % (A) 2 %; Neutrophils % (A) 91 %; RBC 3.53 m/uL (3.80-5.40); RDW 15.5 % (11.5-15.5); WBC 6.6 k/uL (3.8-10.6); WBC (Perox) 6.79
[2017-01-16 08:44] LABS: Anion Gap 11 mmol/L; Blood Urea Nitrogen 35 mg/dL (7-17); Calcium 9.4 mg/dL (8.4-10.2); Carbon Dioxide 29 mmol/L (22-30); Chloride 102 mmol/L (98-107); Glucose 122 mg/dL (74-99); Magnesium 1.9 mg/dL (1.6-2.3); Non-African American GFR(MDRD) 57 (>60 ml/min/1.73 sqM); Sodium 142 mmol/L (137-145)
[2017-01-16] MEDS: BUDESONIDE 0.5 MG/2 ML NEBU INHALATION SCH ×2 (08:46→20:44)
[2017-01-16] MEDS: HEPARIN SODIUM,PORCINE 5,000 UNIT/ML 1 ML VIAL SQ SCH ×2 (09:36→19:56)
[2017-01-16] MEDS: guaiFENesin 600 MG TABLET.ER PO SCH ×2 (09:36→19:56)
[2017-01-16] MEDS: ALLOPURINOL 100 MG TAB PO SCH (09:36)
[2017-01-16] MEDS: METOPROLOL SUCCINATE (ER) 25 MG TAB.ER.24H PO SCH (09:37)
[2017-01-16] MEDS: PANTOPRAZOLE 40 MG TABLET PO SCH (09:37)
[2017-01-16] MEDS: DONEPEZIL 10 MG TAB PO SCH (11:33)
[2017-01-16 11:58] LABS: Glucose,Whole Blood 186 mg/dL (75-99)
--- NOTE | 2017-01-16 12:03 | CDI ---
In responding to this query, please exercise your independent professional judgment. The [facility] Coding Staff and Clinical Documentation Specialists appreciate your assistance in clarifying documentation, maintaining compliance with coding guidelines, accurately documenting patients condition and capturing severity of illness. The fact that a question is asked does not imply that any particular answer is desired or expected. Communication forms are a method of clarifying documentation and are not made part of the Legal Health Record. Thank you in advance for your clarification. Last Revision, January 2016 Jojo Crowe [address] [facility] [place] [address] Documentation Clarification Form Date: 01/15/2017 10:42:00 AM Resubmitted 01/16/2017 From: Ksenia Portillo, [facility], CCDS Admit Date: 01/12/2017 9:47:00 PM Patient Name: Porsche Duarte Visit Number: [id number] Discharge Date: Dr. Dianne Pereyra: Asthma is documented in the ER note & H/P as a history of. Per the H/P diagnosis & the 01/14 progress note diagnosis: Reactive airway disease with audible wheezing: Currently on IV Solu-Medrol. Patient history/risk factors: Former smoker, History of Asthma nos, CVA, Hypertension, previous pneumonia & CKD. Clinical Indicators: Wheezing, rales, SOB Admission VS: T 99.5, P 107, R 28 (sob, accessory muscle use), BP 191/84 & PO 92 3Lnc Radiology: CXR: Patchy density RUL & right medial lung base, may reflect developing infiltrate. Treatment: IV Levaquin, Albuterol INH, IV Solumedrol, O2 2Lnc In your professional opinion, can you please further specify the following, if known? With Acute Exacerbation Status asthmaticus Acute lower respiratory infection COPD (specify with or without exacerbation) Chronic obstructive bronchitis Other, please specify Unable to determine Severity Mild intermittent Mild persistent Moderate persistent Severe persistent Other, please specify ____ Unable to determine Form or Type Cough variant Childhood Exercise induced bronchospasm Extrinsic allergic Idiosyncratic Intrinsic nonallergic Late-onset Mixed Other, please specify Unable to determine Please document in your progress notes and discharge summary in order to capture severity of illness and risk of mortality. Include clinical findings that support your diagnosis. FYI: Press F11 to launch patient chart. Place X here if this finding has no clinical significance, is not applicable or if you are not able to provide any additional documentation. Thank you. MICHELLE
[2017-01-16] MEDS: ACETAMINOPHEN TAB 325 MG TAB PO PRN ×2 (13:22→18:23)
--- NOTE | 2017-01-16 15:40 | P.PN ---
Subjective Principal diagnosis: Pneumonia Patient is doing a lot better today. Her cough has improved. She is complaining of headache this morning. Objective - Vital Signs Vital signs: Vital Signs Temp 98.0 F 01/16/17 14:18 Pulse 91 01/16/17 14:18 Resp 16 01/16/17 14:18 BP 158/77 01/16/17 14:18 Pulse Ox 100 01/16/17 14:18 Intake & Output 01/15/17 01/16/17 01/16/17 18:59 06:59 18:59 Intake Total 580 100 Output Total 400 200 Balance 180 100 -200 Weight 64.41 kg 64.41 kg Intake: Oral 580 100 Output: Urine 400 200 Other: Voiding Method Diaper Diaper Diaper # Voids 1 2 1 # Bowel Movements 1 1 - Exam General: The patient is awake and alert, in no distress Eye: there is normal conjunctiva bilaterally. Neck: The neck is supple, there is no JVD. Cardiovascular: Normal S1-S2, no S3-S4, no murmurs. Respiratory: Lungs with mild end expiratory wheezing Gastrointestinal: Abdomen is soft, nontender Musculoskeletal: There is no pedal edema. Neurological:. Speech is normal. Skin: Skin is warm and dry - Labs CBC & Chem 7: 01/16/17 08:07 01/16/17 08:07 Labs: Abnormal Lab Results - Last 24 Hours (Table) 01/15/17 01/15/17 01/16/17 Range/Units 17:06 20:08 06:59 RBC (3.80-5.40) m/uL Hgb (11.4-16.0) gm/dL Hct (34.0-46.0) % MCHC (31.0-37.0) g/dL Lymphocytes # (1.0-4.8) k/uL BUN (7-17) mg/dL Glucose (74-99) mg/dL POC Glucose (mg/dL) 152 H 161 H 134 H (75-99) mg/dL 01/16/17 01/16/17 01/16/17 Range/Units 08:07 08:07 11:44 RBC 3.53 L (3.80-5.40) m/uL Hgb 9.1 L (11.4-16.0) gm/dL Hct 30.5 L (34.0-46.0) % MCHC 29.8 L (31.0-37.0) g/dL Lymphocytes # 0.4 L (1.0-4.8) k/uL BUN 35 H (7-17) mg/dL Glucose 122 H (74-99) mg/dL POC Glucose (mg/dL) 186 H (75-99) mg/dL Assessment and Plan Plan: 1. Right lower lobe pneumonia: On antibiotic with Levaquin. Blood culture negative to date 2. Acute COPD exacerbation Continue bronchodilators and steroids as ordered 3. Acute hypoxic respiratory failure requiring O2 supplement secondary to #1 and 2 4. Underlying dementia, advanced 5. History of paroxysmal atrial fibrillation not a candidate for anticoagulation 6. Hypothyroidism: On levothyroxin 7. Mixed hyperlipidemia 8. DVT prophylaxis with subcu heparin 9. Patient is DO NOT RESUSCITATE/DO NOT INTUBATE Today, I reviewed her medication list. Decrease Solu-Medrol dose to 40 mg twice daily. Continue current regimen otherwise. Repeat lab work in the morning. PT/OT evaluation. Discharge planning Patient does not have asthma
[2017-01-16 16:43] LABS: Glucose,Whole Blood 115 mg/dL (75-99)
[2017-01-16] MEDS: LEVOFLOXACIN 750MG-D5W PMX 750 MG in DEXTROSE/WATER 1 150ML.BAG IVPB SCH (17:13)
[2017-01-16] MEDS: ASPIRIN 325 MG TAB PO SCH (19:55)
[2017-01-16] MEDS: POLYETHYLENE GLYCOL 3350 17 GM POWD.PACK PO SCH (19:55)
[2017-01-16] MEDS: MONTELUKAST 10 MG TAB PO SCH (19:56)
[2017-01-16] MEDS: PARoxetine 10 MG TAB PO SCH (19:56)
[2017-01-16] MEDS: risperiDONE 1 MG TAB PO SCH (19:56)
[2017-01-16] MEDS: methylPREDNISolone SOD SUCCI 40 MG/ML 1 ML VIAL IVP SCH (19:57)
[2017-01-16 20:46] LABS: Glucose,Whole Blood 235 mg/dL (75-99)
[2017-01-17] MEDS: IPRATROPIUM-ALBUTEROL 3 ML NEB INHALATION SCH ×4 (01:01→12:26)
[2017-01-17] MEDS: LEVOTHYROXINE 75 MCG TAB PO SCH (06:00)
[2017-01-17 07:07] LABS: Basophils % (A) 0 %; CH 24.8; CHCM 28.4; Eosinophils % (A) 0 %; HCT 28.8 % (34.0-46.0); HDW 2.93; HGB 8.3 gm/dL (11.4-16.0); Hypochromasia Marked; Luc # (Auto) 0.15; Luc % (Auto) 2; Lymphocytes # (A) 0.5 k/uL (1.0-4.8); Lymphocytes % (A) 7 %; MCH 25.1 pg (25.0-35.0); MCHC 28.7 g/dL (31.0-37.0); MCV 87.6 fL (80.0-100.0); Mean Platelet Volume 7.9; Monocytes # (A) 0.3 k/uL (0-1.0); Monocytes % (A) 5 %; Neutrophils # (A) 5.3 k/uL (1.3-7.7); Neutrophils % (A) 85 %; RBC 3.28 m/uL (3.80-5.40); RDW 15.3 % (11.5-15.5); WBC 6.3 k/uL (3.8-10.6); WBC (Perox) 6.76
[2017-01-17 07:13] LABS: Anion Gap 7 mmol/L; Blood Urea Nitrogen 37 mg/dL (7-17); Calcium 9.2 mg/dL (8.4-10.2); Carbon Dioxide 33 mmol/L (22-30); Chloride 102 mmol/L (98-107); Glucose 102 mg/dL (74-99); Magnesium 1.9 mg/dL (1.6-2.3); Non-African American GFR(MDRD) 54 (>60 ml/min/1.73 sqM); Potassium 4.6 mmol/L (3.5-5.1); Sodium 142 mmol/L (137-145)
[2017-01-17 07:15] LABS: Glucose,Whole Blood 103 mg/dL (75-99)
[2017-01-17] MEDS: BUDESONIDE 0.5 MG/2 ML NEBU INHALATION SCH (07:35)
[2017-01-17] MEDS: IPRATROPIUM-ALBUTEROL 3 ML NEB INHALATION PRN (07:36)
[2017-01-17] MEDS: INSULIN LISPRO (humaLOG) 300 UNIT/3 ML VIAL SQ SCH (07:42)
[2017-01-17] MEDS: guaiFENesin 600 MG TABLET.ER PO SCH (07:44)
[2017-01-17] MEDS: ALLOPURINOL 100 MG TAB PO SCH (07:45)
[2017-01-17] MEDS: PANTOPRAZOLE 40 MG TABLET PO SCH (07:45)
[2017-01-17] MEDS: DONEPEZIL 10 MG TAB PO SCH (07:45)
[2017-01-17] MEDS: methylPREDNISolone SOD SUCCI 40 MG/ML 1 ML VIAL IVP SCH (07:46)
[2017-01-17] MEDS: METOPROLOL SUCCINATE (ER) 25 MG TAB.ER.24H PO SCH (07:46)
[2017-01-17] MEDS: HEPARIN SODIUM,PORCINE 5,000 UNIT/ML 1 ML VIAL SQ SCH (07:46)
[2017-01-17 11:50] LABS: Glucose,Whole Blood 95 mg/dL (75-99)
[2017-01-17 14:15] VITALS: BP 157/71; PULSE 74; RESP 16; TEMP 97.7
--- NOTE | 2017-01-17 15:00 | P.DS ---
Providers Date of admission: 01/12/17 21:47 Expected date of discharge: 01/17/17 Attending physician: Arnoldo Murphy [facility] Course: This is a 89-year-old female with past medical history noted below who presented to the hospital with worsening productive cough and wheezing. Patient was evaluated in the emergency room and admitted to the hospital. X- ray showed evidence of pneumonia. Her clinical condition improved significantly throughout her hospital stay. This of her medical problems addressed during this hospitalization. 1. Right lower lobe pneumonia: On antibiotic with Levaquin. Blood culture negative to date 2. Acute COPD exacerbation Continue bronchodilators and steroids as ordered 3. Acute hypoxic respiratory failure requiring O2 supplement secondary to #1 and 2 4. Underlying dementia, advanced 5. History of paroxysmal atrial fibrillation not a candidate for anticoagulation 6. Hypothyroidism: On levothyroxin 7. Mixed hyperlipidemia 8. Patient is DO NOT RESUSCITATE/DO NOT INTUBATE Plan - Discharge Summary New Discharge Prescriptions: Levofloxacin [Levaquin] 250 mg PO DAILY #3 tab predniSONE 40 mg PO DAILY #10 tab Discharge Medication List risperiDONE [RisperDAL] 1 mg PO HS@199904/20/14 [History] Budesonide [Pulmicort] 0.5 mg INHALATION RT-BID@799,199903/16/15 [History] Allopurinol [Zyloprim] 100 mg PO DAILY 11/26/15 [History] PARoxetine HCL [Paxil] 30 mg PO HS@199911/26/15 [History] Montelukast Sodium [Singulair] 10 mg PO HS@199912/27/15 [History] Levothyroxine Sodium [Synthroid] 75 mcg PO DAILY 05/20/16 [History] Polyethylene Glycol 3350 17 gram PO HS 05/20/16 [History] Metoprolol Succinate (ER) [Toprol XL] 12.5 mg PO DAILY 06/09/16 [History] Aspirin 325 mg PO DAILY@199901/12/17 [History] Docusate [Colace] 100 mg PO DAILY PRN 01/12/17 [History] Omeprazole 20 mg PO DAILY 01/12/17 [History] SILVER sulfADIAZINE CREAM [Silvadene Cream] 1 applic TOPICAL BID@799,01/12 [History] guaiFENesin SYRUP 100MG/5ML [Robitussin] 200 mg PO Q4H PRN 01/12/17 [History] Albuterol Nebulized [Ventolin Nebulized] 2.5 mg INHALATION RT-QID PRN 01/13/17 [ History] Artificial Tears-Hypromellose [Artificial Tear Drops] 2 drops BOTH EYES Q2H PRN 01/13/17 [History] Atropine Sulfate [Atropine Sulfate 1%] 2 drop SUBLINGUAL Q4H PRN 01/13/17 [ History] Bisacodyl [Dulcolax] 10 mg RECTAL Q3H PRN 01/13/17 [History] Donepezil HCl [Aricept ODT] 10 mg PO DAILY 01/13/17 [History] Levofloxacin [Levaquin] 250 mg PO DAILY #3 tab 01/17/17 [Rx] predniSONE 40 mg PO DAILY #10 tab 01/17/17 [Rx] Follow up Appointment(s)/Referral(s): Dianne Pereyra MD [Primary Care Provider] - 3 Days (Office closed. Please call and schedule follow up appointment.) Discharge Disposition: HOME WITH HOME HEALTH SERVICES
== END 2017-01-17 16:02 | disposition home health service (06) | DRG 190 ==
LOC: EC 20:19 → 3SUR 21:47
PROVIDERS: ADMIT Internal Medicine; ATTEND Internal Medicine
DX: J44.0 Chronic obstructive pulmonary disease with (acute) lower respiratory infection (principal); J18.9 Pneumonia, unspecified organism; J96.01 Acute respiratory failure with hypoxia; I48.0 Paroxysmal atrial fibrillation; J84.10 Pulmonary fibrosis, unspecified; F03.90 Unspecified dementia, unspecified severity, without behavioral disturbance, psychotic disturbance, mood disturbance, and anxiety; E03.9 Hypothyroidism, unspecified; E78.2 Mixed hyperlipidemia; H91.90 Unspecified hearing loss, unspecified ear; I12.9 Hypertensive chronic kidney disease with stage 1 through stage 4 chronic kidney disease, or unspecified chronic kidney disease; J44.1 Chronic obstructive pulmonary disease with (acute) exacerbation; K21.9 Gastro-esophageal reflux disease without esophagitis; M10.9 Gout, unspecified; N18.9 Chronic kidney disease, unspecified; M19.90 Unspecified osteoarthritis, unspecified site; F40.240 Claustrophobia; Z66 Do not resuscitate; Z87.891 Personal history of nicotine dependence; Z79.82 Long term (current) use of aspirin; Z79.01 Long term (current) use of anticoagulants; Z79.899 Other long term (current) drug therapy; Z88.5 Allergy status to narcotic agent; Z85.828 Personal history of other malignant neoplasm of skin; Z82.49 Family history of ischemic heart disease and other diseases of the circulatory system
CPT/HCPCS: 36415; 71020; 80048; 80053; 81001; 82550; 82553; 83036; 83735; 83880; 84484; 85025; 85610; 85730; 87040; 87086; 87502; 93005; 94640; 94760; 96365; 99285

== ENCOUNTER 2017-01-20 06:11 | Inpatient (IN) | payer MEDICARE ==
--- NOTE | 2017-01-20 06:34 | ED ---
Chest Pain HPI - General Source: patient Mode of arrival: EMS Limitations: physical limitation - History of Present Illness MD Complaint: chest pain -: unknown Pain Location: right chest Worsens With: inspiration, other (Cough) <Carlos Gupta - Last Filed: 01/20/17 06:30> <Emiliano Martinez - Last Filed: 01/20/17 08:14> - General Stated Complaint: Chest Pain Time Seen by Provider: 01/20/17 06:25 - History of Present Illness Initial Comments: This patient is an 89-year-old woman coming from an [facility] home by ambulance to be evaluated for right sided chest pain. History is somewhat difficult to obtain as the patient is significantly hard of hearing and also per the family has significant dementia. She is able to indicate the right upper chest wall area. She holds this area when she coughs. She is not able to characterize the pain well. (Carlos Gupta) - Related Data Home Medications Medication Instructions Recorded Confirmed risperiDONE [RisperDAL] 1 mg PO HS@199904/20/14 01/20/17 Budesonide [Pulmicort] 0.5 mg INHALATION RT-BID@799,199903/16/15 01/20/17 Allopurinol [Zyloprim] 100 mg PO DAILY@79911/26/15 01/20/17 PARoxetine HCL [Paxil] 30 mg PO HS@199911/26/15 01/20/17 Montelukast Sodium [Singulair] 10 mg PO HS@199912/27/15 01/20/17 Levothyroxine Sodium [Synthroid] 75 mcg PO DAILY@59905/20/16 01/20/17 Polyethylene Glycol 3350 17 gram PO HS@199905/20/16 01/20/17 Metoprolol Succinate (ER) [Toprol 12.5 mg PO DAILY@79906/09/16 01/20/17 XL] Aspirin 325 mg PO DAILY@199901/12/17 01/20/17 Docusate [Colace] 100 mg PO DAILY PRN 01/12/17 01/20/17 Omeprazole 20 mg PO DAILY@79901/12/17 01/20/17 SILVER sulfADIAZINE CREAM 1 applic TOPICAL BID@799,199901/12/17 01/20/17 [Silvadene Cream] guaiFENesin SYRUP 100MG/5ML 200 mg PO Q4H PRN 01/12/17 01/20/17 [Robitussin] Albuterol Nebulized [Ventolin 2.5 mg INHALATION RT-QID PRN 01/13/17 01/20/17 Nebulized] Artificial Tears-Hypromellose 2 drops BOTH EYES Q2H PRN 01/13/17 01/20/17 [Artificial Tear Drops] Atropine Sulfate [Atropine Sulfate 2 drop SUBLINGUAL Q4H PRN 01/13/17 01/20/17 1%] Bisacodyl [Dulcolax] 10 mg RECTAL Q3H PRN 01/13/17 01/20/17 Donepezil HCl [Aricept ODT] 10 mg PO DAILY@0800 01/13/17 01/20/17 Levofloxacin [Levaquin] 250 mg PO DAILY@0800 01/20/17 01/20/17 predniSONE 20 mg PO BID@0800,199901/20/17 01/20/17 Allergies Allergy/AdvReac Type Severity Reaction Status Date / Time codeine Allergy Rash/Hives Verified 01/20/17 07:07 Review of Systems ROS Other: All systems not noted in ROS Statement are negative. Limitations: ROS unobtainable due to patients medical condition Respiratory: Reports: cough Cardiovascular: Reports: chest pain Gastrointestinal: Denies: abdominal pain Musculoskeletal: Denies: back pain Neurological: Denies: headache <Carlos Gupta - Last Filed: 01/20/17 06:30> ROS Other: All systems not noted in ROS Statement are negative. <Emiliano Martinez - Last Filed: 01/20/17 08:14> ROS Statement: Those systems with pertinent positive or pertinent negative responses have been documented in the HPI. EKG Findings - EKG Results: EKG: interpreted by ERMD, sinus rhythm, normal axis, normal ST/T - Blocks, [place], Hypertrophy, ST Abn: Chamber hypertrophy or enlargement: left ventricular hypertrophy or enlargement (LVE) <Carlos Gupta - Last Filed: 01/20/17 06:30> Past Medical History Past Medical History: Asthma, CVA/TIA, Dementia, GERD/Reflux, Hearing Disorder / Deafness, Hyperlipidemia, Hypertension, Memory Impairment, Osteoarthritis (OA) , Pneumonia, Renal Disease, Respiratory Disorder, Skin Disorder, Syncope, Thyroid Disorder Additional Past Medical History / Comment(s): bronchitis, emphysema,arthritis in hands, tia x2, ckd/renal failure(per old hx-seizure), pulmonary fibrosis, SKIN CA TO LEFT UPPER ARM '15, FREQUENT UTI, HARD OF HEARING, BROKEN TEETH, GOUT History of Any Multi-Drug Resistant Organisms: None Reported Past Surgical History: Adenoidectomy, Appendectomy, Hysterectomy, Tonsillectomy Additional Past Surgical History / Comment(s): cataract sx rafael, SKIN CA REMOVED FROM LEFT UPPER ARM IN 2014 Past Anesthesia/Blood Transfusion Reactions: No Reported Reaction Additional Past Anesthesia/Blood Transfusion Reaction / Comment(s): claustraphobic Past Psychological History: No Psychological Hx Reported Additional Psychological History / Comment(s): dementia, PER PT'S DAUGHTER NO DX OF DEPRESSION BUT PT SLEEPS 19 OUT OF 24 HOURS A DAY,FALLS SLEEP WHEN UP IN CHAIR AND DROOLS A LOT. Smoking Status: Former smoker Past Alcohol Use History: Occasional Additional Past Alcohol Use History / Comment(s): started smoking at age 42 quit at age 62, used to smoke 1 ppd Past Drug Use History: None Reported - Past Family History Mother History Unknown: Yes Son(s) Family Medical History: Hypertension Sister(s) History Unknown: Yes Father Family Medical History: CVA/TIA <Carlos Gupta - Last Filed: 01/20/17 06:30> General Exam Limitations: physical limitation General appearance: alert, in no apparent distress Head exam: Present: atraumatic, normocephalic Respiratory exam: Present: respiratory distress (Mild tachypnea), rales (Right upper), rhonchi, chest wall tenderness. Absent: wheezes, accessory muscle use, decreased breath sounds, prolonged expiratory Cardiovascular Exam: Present: regular rate, normal rhythm, normal heart sounds. Absent: systolic murmur, diastolic murmur, rubs, gallop GI/Abdominal exam: Present: soft. Absent: distended, tenderness, guarding, rebound, mass Extremities exam: Present: normal inspection, normal capillary refill. Absent: pedal edema, calf tenderness Back exam: Absent: tenderness, CVA tenderness (R), CVA tenderness (L) Neurological exam: Present: alert Skin exam: Present: warm, dry, intact, normal color. Absent: rash <Carlos Gupta - Last Filed: 01/20/17 06:30> Chest Pain MDM <Carlos Gupta - Last Filed: 01/20/17 06:30> <Emiliano Martinez - Last Filed: 01/20/17 08:14> - [facility] X-ray shows right upper lobe pneumonia (Emiliano Martinez) Disposition <Carlos Gupta - Last Filed: 01/20/17 06:30> Time of Disposition: 08:14 <Emiliano Martinez - Last Filed: 01/20/17 08:14> Clinical Impression: Pneumonia Disposition: ADMITTED IP TO THIS HOSP
[2017-01-20 06:47] LABS: Basophils % (A) 0 %; CH 24.8; CHCM 28.7; Eosinophils % (A) 0 %; HCT 33.7 % (34.0-46.0); HDW 2.98; Hypochromasia Marked; Luc # (Auto) 0.34; Luc % (Auto) 2; Lymphocytes # (A) 1.1 k/uL (1.0-4.8); Lymphocytes % (A) 7 %; MCH 25.3 pg (25.0-35.0); MCHC 29.3 g/dL (31.0-37.0); MCV 86.3 fL (80.0-100.0); Mean Platelet Volume 7.8; Monocytes # (A) 0.5 k/uL (0-1.0); Monocytes % (A) 4 %; Neutrophils # (A) 12.6 k/uL (1.3-7.7); Neutrophils % (A) 87 %; RBC 3.91 m/uL (3.80-5.40); RDW 15.5 % (11.5-15.5); WBC 14.6 k/uL (3.8-10.6); WBC (Perox) 14.83
[2017-01-20 06:53] LABS: HGB 9.9 gm/dL (11.4-16.0)
[2017-01-20 06:56] LABS: Anion Gap 6 mmol/L; Calcium 9.4 mg/dL (8.4-10.2); Carbon Dioxide 35 mmol/L (22-30); Chloride 100 mmol/L (98-107); Glucose 98 mg/dL (74-99); Non-African American GFR(MDRD) >60 (>60 ml/min/1.73 sqM); Sodium 141 mmol/L (137-145); Total Bilirubin 0.5 mg/dL (0.2-1.3); Total Protein 6.5 g/dL (6.3-8.2)
[2017-01-20 06:58] LABS: ALT 40 U/L (9-52); AST 25 U/L (14-36); Alkaline Phosphatase 66 U/L (38-126); Blood Urea Nitrogen 35 mg/dL (7-17); Potassium 5.9 mmol/L (3.5-5.1)
[2017-01-20 07:07] LABS: Creatine Kinase <20 U/L (30-135)
[2017-01-20 07:20] LABS: Creatine Kinase MB 0.5 ng/mL (0.0-2.4); Troponin I <0.012 ng/mL (0.000-0.034)
[2017-01-20] MEDS ORDERED: KETOROLAC 30 MG/ML 1 ML VIAL IVP STA (07:34)
--- NOTE | 2017-01-20 08:01 | XR ---
EXAMINATION TYPE: XR chest 2V DATE OF EXAM: 01/20/2017 6:47 AM COMPARISON: 01/15/2017 HISTORY: Shortness of breath TECHNIQUE: Frontal and lateral views of the chest are obtained. FINDINGS: Scattered senescent parenchymal changes noted. Hyperinflation compatible with COPD. Patchy density right upper lobe may reflect developing infiltrate. Heart size is stable. Mediastinal structures are stable and grossly unremarkable. No evidence for hilar prominence. Degenerative changes dorsal spine. IMPRESSION: 1. Patchy density right upper lobe may reflect developing infiltrate.
[2017-01-20] MEDS ORDERED: LEVOFLOXACIN 750MG-D5W PMX 750 MG in DEXTROSE/WATER 1 150ML.BAG IVPB STA (08:14)
[2017-01-20] MEDS ORDERED: PNEUMONIA PROTOCOL UTILIZED 1 EACH MISC PO PRN (08:14)
[2017-01-20] MEDS ORDERED: SODIUM POLYSTYRENE SULFONATE 15 GM/60 ML BOTTLE PO STA (10:40)
[2017-01-20] MEDS ORDERED: KETOROLAC 30 MG/ML 1 ML VIAL IVP PRN (10:45)
[2017-01-20] MEDS: CLINDAMYCIN 600 MG in DEXTROSE 5% IN WATER 50 ML IVPB SCH ×6 (10:46→23:54)
[2017-01-20] MEDS: SODIUM CHLORIDE 0.9% 1,000 ML IV SCH (10:47)
[2017-01-20] MEDS ORDERED: DOCUSATE 100 MG CAP PO PRN (11:14)
[2017-01-20] MEDS ORDERED: BISACODYL 10 MG SUPP RECTAL PRN (11:14)
[2017-01-20] MEDS ORDERED: guaiFENesin SYRUP 100MG/5ML 200 MG/10 ML CUP PO PRN (11:14)
[2017-01-20] MEDS ORDERED: ARTIFICIAL TEARS-HYPROMELLOSE DROPS 15 ML BTL BOTH EYES PRN (11:14)
[2017-01-20] MEDS ORDERED: Potassium Replacement Protocol 1 EACH MISC MISCELLANE PRN (11:17)
[2017-01-20] MEDS ORDERED: Magnesium Replacement Protocol 1 EACH MISC MISCELLANE PRN (11:17)
[2017-01-20 11:19] LABS: Mis test requested (Blood) PT/INR/PTT
[2017-01-20] MEDS ORDERED: KETOROLAC 30 MG/ML 1 ML VIAL IVP SCH (12:00)
--- NOTE | 2017-01-20 12:09 | FL ---
EXAMINATION TYPE: FL barium swallow w video DATE OF EXAM: 01/20/2017 12:03 PM MODIFIED SWALLOW / DEGLUTITION STUDY CLINICAL HISTORY: Dysphagia. Suspected aspiration pneumonia. TECHNIQUE: Deglutition study is performed utilizing thin liquid barium, honey and nectar thick liqui d barium, barium thick applesauce, and barium coated cracker. 2 minutes of fluoroscopic time was util ized during procedure. COMPARISON: None. FINDINGS: The oral and pharyngeal phases show satisfactory initiation and propagation with all modali ties tested. Normal mastication is seen with solid modalities tested. There is aspiration which ini tiates cough reflex with single episode of barium thick applesauce but aspirated material is not millie red by cough. There is no evidence of penetration or aspiration with any other modality tested. Mild pharyngeal residue was appreciated. IMPRESSION: Single episode of aspiration with barium thick applesauce. Please refer to speech therapi st notes for further details if necessary.
[2017-01-20] MEDS: IPRATROPIUM-ALBUTEROL 3 ML NEB INHALATION SCH ×3 (12:30→20:09)
--- NOTE | 2017-01-20 13:37 | P.HPIM ---
History of Present Illness H&P Date: 01/20/17 Chief Complaint: Worsening cough and chest pain This is a 89-year-old female with past medical history noted below significant for advanced dementia. Patient is unable to provide any medical history. Most of the medical history was obtained by chart review, nursing staff report, and her son at the bedside. Patient was recently discharged from the hospital after being treated for underlying pneumonia and COPD exacerbation. She went to the assisted living in a stable condition. Since yesterday she noted to have worsening cough. She is also complaining of chest pain. She was brought into the emergency room and was noted to have elevated leukocytosis. 12 leads EKG showed no acute ischemic changes. Chest x-ray showed suspected right upper lobe infiltrate. Patient was made nothing by mouth and was admitted to the hospital on broad-spectrum antibiotic. There is no documented fever. She underwent a swallow study today and had some mild aspiration. She is awake and alert right now. Review of Systems Review of system: 14 points review of systems were obtained and were negative except to what were mentioned in the HPI. Past Medical History Past Medical History: Atrial Flutter, Asthma, Cancer, COPD, CVA/TIA, Dementia, Eye Disorder, GERD/Reflux, Hearing Disorder / Deafness, Hyperlipidemia, Hypertension, Memory Impairment, Musculoskeletal Disorder, Neurologic Disorder, Osteoarthritis (OA), Pneumonia, Renal Disease, Respiratory Disorder, Seizure Disorder, Skin Disorder, Syncope, Thyroid Disorder Additional Past Medical History / Comment(s): Pt recently admitted to [facility] on with R lower lobe pneumona/acute hypoxic respiratory failure. Other HX : Pneumonias, bronchitis, emphysema, pulmonary fibrosis, paroxysmal afib, parkinsons's disease, arthritis in hands, tia x2, ckd/renal failure(per old hx- seizure- traci states possibly), glaucoma bilaterally with surgery, SKIN CA TO LEFT UPPER ARM '15, FREQUENT UTI, HARD OF HEARING bilaterally, BROKEN TEETH, GOUT History of Any Multi-Drug Resistant Organisms: None Reported Past Surgical History: Adenoidectomy, Appendectomy, Hysterectomy, Tonsillectomy Additional Past Surgical History / Comment(s): cataract sx rafael, surgery for bilateral glaucoma, SKIN CA REMOVED FROM LEFT UPPER ARM IN 2014, colonoscopy with possible polypectomy (traci unsure). Past Anesthesia/Blood Transfusion Reactions: No Reported Reaction Additional Past Anesthesia/Blood Transfusion Reaction / Comment(s): claustraphobic Past Psychological History: No Psychological Hx Reported Additional Psychological History / Comment(s): Pt resides at [facility]. She has [facility] home care. She is wheelchair bound. PER PT'S DAUGHTER PT SLEEPS 19 OUT OF 24 HOURS A DAY,FALLS SLEEP WHEN UP IN CHAIR AND DROOLS A LOT. Pt needs assistance with all ADLS. She sometimes will feed herself alittle. Smoking Status: Former smoker Past Alcohol Use History: Occasional Additional Past Alcohol Use History / Comment(s): Pt quit smoking in 2008 Past Drug Use History: None Reported - Past Family History Mother History Unknown: Yes Son(s) Family Medical History: Hypertension Sister(s) History Unknown: Yes Daughter(s) Family Medical History: Cancer, Seizure Disorder Additional Family Medical History / Comment(s): Daughter of ovarian cancer at the age of 49yrs. Father Family Medical History: CVA/TIA Medications and Allergies Home Medications Medication Instructions Recorded Confirmed Type risperiDONE [RisperDAL] 1 mg PO HS@199904/20/14 01/20/17 History Budesonide [Pulmicort] 0.5 mg INHALATION RT-BID@799,199903/16/15 01/20/17 History Allopurinol [Zyloprim] 100 mg PO DAILY@79911/26/15 01/20/17 History PARoxetine HCL [Paxil] 30 mg PO HS@199911/26/15 01/20/17 History Montelukast Sodium [Singulair] 10 mg PO HS@199912/27/15 01/20/17 History Levothyroxine Sodium [Synthroid] 75 mcg PO DAILY@59905/20/16 01/20/17 History Polyethylene Glycol 3350 17 gram PO HS@199905/20/16 01/20/17 History Metoprolol Succinate (ER) [Toprol 12.5 mg PO DAILY@79906/09/16 01/20/17 History XL] Aspirin 325 mg PO DAILY@199901/12/17 01/20/17 History Docusate [Colace] 100 mg PO DAILY PRN 01/12/17 01/20/17 History Omeprazole 20 mg PO DAILY@79901/12/17 01/20/17 History SILVER sulfADIAZINE CREAM 1 applic TOPICAL BID@0801/12/17 01/20/17 History [Silvadene Cream] guaiFENesin SYRUP 100MG/5ML 200 mg PO Q4H PRN 01/12/17 01/20/17 History [Robitussin] Albuterol Nebulized [Ventolin 2.5 mg INHALATION RT-QID PRN 01/13/17 01/20/17 History Nebulized] Artificial Tears-Hypromellose 2 drops BOTH EYES Q2H PRN 01/13/17 01/20/17 History [Artificial Tear Drops] Atropine Sulfate [Atropine Sulfate 2 drop SUBLINGUAL Q4H PRN 01/13/17 01/20/17 History 1%] Bisacodyl [Dulcolax] 10 mg RECTAL Q3H PRN 01/13/17 01/20/17 History Donepezil HCl [Aricept ODT] 10 mg PO DAILY@0800 01/13/17 01/20/17 History Levofloxacin [Levaquin] 250 mg PO DAILY@0801/20/17 01/20/17 History predniSONE 20 mg PO BID@01/20/17 01/20/17 History Allergies Allergy/AdvReac Type Severity Reaction Status Date / Time codeine Allergy Rash/Hives Verified 01/20/17 07:07 Physical Exam Vitals: Vital Signs Temp Pulse Pulse Resp BP BP Pulse Ox 01/20/17 12:42 80 01/20/17 12:31 76 01/20/17 09:42 97.2 F L 77 16 152/69 99 01/20/17 09:13 97.2 F L 78 24 144/68 98 01/20/17 08:00 97 F L 71 24 127/61 99 Intake and Output 01/19/17 01/20/17 01/20/17 22:59 06:59 14:59 Other: Weight 65 kg Patient Weight 01/21/17 06:59 Weight 65 kg General: The patient is awake and alert, in no distress Eye: there is normal conjunctiva bilaterally. Neck: The neck is supple, there is no JVD. Cardiovascular: Normal S1-S2, no S3-S4, no murmurs. Respiratory: Lungs clear to auscultation bilaterally Gastrointestinal: Abdomen is soft, nontender Musculoskeletal: There is no pedal edema. Neurological:. Speech is normal. Skin: Skin is warm and dry Results CBC & Chem 7: 01/20/17 06:33 01/20/17 06:33 Labs: Abnormal Lab Results - Last 24 Hours (Table) 01/20/17 Range/Units 10:51 D-Dimer 1.83 H (<0.60) mg/L FEU Thrombosis Risk Factor Assmnt - Choose All That Apply Any of the Below Risk Factors Present?: Yes Each Factor Represents 1 point: Abnormal pulmonary function (COPD), Serious lung disease incl. pneumonia (< 1month) Other Risk Factors: Yes Each Risk Factor Represents 2 Points: Malignancy Each Risk Factor Represents 3 Points: Age 75 years or older Other congenital or acquired thrombophilia - If yes, enter type in comment: No Thrombosis Risk Factor Assessment Total Risk Factor Score: 7 Thrombosis Risk Factor Assessment Level: High Risk Assessment and Plan Plan: 1. Right upper lobe pneumonia: Possibly aspiration pneumonia as patient had partial aspiration with a swallow study. She is on broad-spectrum antibiotic. Blood culture sent. I will consult infectious disease for antibiotic management. 2. Recent COPD exacerbation Continue bronchodilators and steroids as ordered 3. Acute hypoxic respiratory failure requiring O2 supplement secondary to #1 and 2 4. Underlying dementia, advanced 5. History of paroxysmal atrial fibrillation not a candidate for anticoagulation 6. Hypothyroidism: On levothyroxin 7. Mixed hyperlipidemia 8. Patient is DO NOT RESUSCITATE/DO NOT INTUBATE We will continue supportive care. I discussed her current condition with her son at bedside. Repeat chest x-ray within the next day or 2. Repeat lab work in the morning.
[2017-01-20 14:32] VITALS: BMI 27.1
[2017-01-20] MEDS: PIPERACILLIN TAZOBACTAM IVPB SCH ×2 (17:14)
[2017-01-20] MEDS: WATER IVPB SCH ×2 (17:14)
[2017-01-20] MEDS: DEXTROSE 5% IVPB SCH ×2 (17:14)
[2017-01-20] MEDS: PARoxetine 10 MG TAB PO SCH (19:59)
[2017-01-20] MEDS: POLYETHYLENE GLYCOL 3350 17 GM POWD.PACK PO SCH (19:59)
[2017-01-20] MEDS: risperiDONE 1 MG TAB PO SCH (19:59)
[2017-01-20] MEDS: MONTELUKAST 10 MG TAB PO SCH (19:59)
[2017-01-20] MEDS: ASPIRIN 325 MG TAB PO SCH (19:59)
[2017-01-20] MEDS: BUDESONIDE 0.5 MG/2 ML NEBU INHALATION SCH (20:09)
[2017-01-20] MEDS: HEPARIN SODIUM,PORCINE 5,000 UNIT/ML 1 ML VIAL SQ SCH (21:11)
[2017-01-21] MEDS: DEXTROSE 5% IVPB SCH ×8 (00:55→23:01)
[2017-01-21] MEDS: WATER IVPB SCH ×8 (00:55→23:01)
[2017-01-21] MEDS: PIPERACILLIN TAZOBACTAM IVPB SCH ×8 (00:55→23:01)
[2017-01-21] MEDS: SODIUM CHLORIDE 0.9% 1,000 ML IV SCH (06:19)
[2017-01-21] MEDS: LEVOTHYROXINE 75 MCG TAB PO SCH (06:19)
[2017-01-21] MEDS: IPRATROPIUM-ALBUTEROL 3 ML NEB INHALATION SCH ×4 (07:06→19:23)
[2017-01-21] MEDS: BUDESONIDE 0.5 MG/2 ML NEBU INHALATION SCH ×2 (07:06→19:23)
[2017-01-21 07:55] LABS: Basophils % (A) 0 %; Eosinophils % (A) 0 %; HCT 28.1 % (34.0-46.0); HDW 2.82; HGB 8.5 gm/dL (11.4-16.0); Hypochromasia Marked; Luc # (Auto) 0.21; Luc % (Auto) 2; Lymphocytes % (A) 8 %; MCHC 30.2 g/dL (31.0-37.0); MCV 86.2 fL (80.0-100.0); Mean Platelet Volume 8.7; Monocytes # (A) 0.3 k/uL (0-1.0); Monocytes % (A) 3 %; Neutrophils # (A) 10.3 k/uL (1.3-7.7); Neutrophils % (A) 87 %; RBC 3.26 m/uL (3.80-5.40); WBC 11.8 k/uL (3.8-10.6); WBC (Perox) 12.49
[2017-01-21] MEDS ORDERED: ALLOPURINOL 100 MG TAB PO SCH (08:00)
[2017-01-21] MEDS ORDERED: LEVOFLOXACIN 750MG-D5W PMX 750 MG in DEXTROSE/WATER 1 150ML.BAG IVPB SCH (08:00)
[2017-01-21 08:19] LABS: Calcium 8.6 mg/dL (8.4-10.2); Potassium 4.1 mmol/L (3.5-5.1)
[2017-01-21] MEDS: CLINDAMYCIN 600 MG in DEXTROSE 5% IN WATER 50 ML IVPB SCH ×2 (08:26)
[2017-01-21] MEDS: METOPROLOL SUCCINATE (ER) 25 MG TAB.ER.24H PO SCH (09:05)
[2017-01-21] MEDS: DONEPEZIL 10 MG TAB PO SCH (09:05)
[2017-01-21] MEDS: PANTOPRAZOLE 40 MG TABLET PO SCH (09:05)
[2017-01-21] MEDS: HEPARIN SODIUM,PORCINE 5,000 UNIT/ML 1 ML VIAL SQ SCH ×2 (09:06→20:10)
--- NOTE | 2017-01-21 09:23 | XR ---
EXAMINATION TYPE: XR chest 2V DATE OF EXAM: 01/21/2017 6:58 AM COMPARISON: 01/20/2017 TECHNIQUE: PA and lateral views submitted. HISTORY: Shortness of breath FINDINGS: Persistent interstitial pattern is seen with arthropathy of the shoulders. No pleural effusion or pneumothorax. Vague patchy density right upper lobe persists. IMPRESSION: 1. Correlate for pulmonary fibrosis. Patchy infiltrate in the right upper lobe appears improved.
[2017-01-21] MEDS ORDERED: cefTRIAXone 2,000 MG in SODIUM CHLORIDE 0.9% 100 ML IVPB SCH (11:00)
--- NOTE | 2017-01-21 11:42 | CONS ---
DATE OF CONSULTATION: 01/21/2017 REASON FOR CONSULTATION: Aspiration pneumonia. HISTORY OF PRESENT ILLNESS: The patient is an 89-year-old female who was recently admitted to [facility]. The patient was treated for COPD exacerbation and possible pneumonia. Patient subsequently discharged to a [facility] about 5 days ago for rehab. The patient was sent back to the ER at [facility] on 01/20/2017 with chief complaints of increasing shortness of breath and productive congested cough. The patient subsequently was evaluated by the ER physician. The patient did have an x-ray which shows patchy density right upper lobe may reflect developing infiltrate. The patient also had a videofluoroscopic swallow that was suggestive of an aspiration with barium thick applesauce. Patient has been admitted to the hospital. She was started on Levaquin and Clindamycin. I was asked to see the patient for recommendation regarding antibiotic. Most of the information has been obtained from review of the chart and talking to the son who was present at the bedside. As the patient herself is not a very good historian, but though did answer some simple questions. She did complain of some chest pain on the right side though. She did have a congested cough, but not able to bring any sputum up. No nausea, no vomiting. No abdominal pain or any diarrhea. REVIEW OF SYSTEMS: Could not be reliably obtained, but the positive points has been mentioned in the HPI. PAST MEDICAL HISTORY: Significant for atrial flutter, COPD, CVA, TIA dementia, gastroesophageal reflux disease, hyperlipidemia, hypertension, memory impairment, seizure disorder, syncope, hypothyroidism. PAST SURGICAL HISTORY: Adenoidectomy, appendectomy, hysterectomy and tonsillectomy. SOCIAL HISTORY: Former smoker; quit back in 2008. No drinking or drug use. FAMILY HISTORY: Daughter had history of ovarian cancer and seizure disorder. Father had history of CVA, TIA. Allergies to CODEINE. Medications currently include the patient is on DuoNeb, allopurinol, aspirin, Pulmicort, Levaquin, clindamycin, Colace, Aricept, Robitussin, heparin, levothyroxine, Toprol XL, Singulair, Protonix, piperacillin-tazobactam, MiraLAX, Risperdal, Silvadene cream. On examination, blood pressure is 132/60 with a pulse of 89, temperature 98.7. She is 92% on 3 L nasal cannula. General description is an elderly female, lying in bed in no distress. No tachypnea or accessory muscles of respiration use. HEENT examination shows pallor. No scleral icterus. Oral mucous membrane is dry. NECK: Trachea central. No thyromegaly. LUNGS: Unlabored breathing with coarse breath sounds at the bases bilaterally. HEART: S1, S2. Regular rate and rhythm. ABDOMEN: Soft, no tenderness. No guarding or rigidity. EXTREMITIES: No edema of feet. SKIN EXAMINATION: No bruises, no rash, or mass palpable. NEUROLOGICAL: The patient is awake, alert, oriented x2. Mood and affect normal. LABS: Hemoglobin is 8.5, white count 11.8, white count was 14.6 yesterday with a BUN of 34, creatinine 1.22. Chest x-ray with right upper lobe infiltrate. Videofluoroscopic swallow was positive. DIAGNOSTIC IMPRESSION AND PLAN: Patient admitted to hospital to with difficulty breathing, did have a congested cough with evidence of right upper lobe infiltrate with a positive swallow likely representing an episode of aspiration pneumonia. The patient has been recently admitted to the hospital will need to cover for the resistant gram-negative pathogen. PLAN: 1. We will continue the patient on Zosyn. I will discontinue the clindamycin and the Levaquin. 2. Will try to obtain sputum for culture and sensitivity. 3. Aspiration precaution. 4. Will follow up on the clinical condition and cultures to further adjust the medication if needed. Thank you for this consultation. Son was present at the bedside. His questions and concerns were answered. MICHELLE
--- NOTE | 2017-01-21 16:31 | P.PN ---
Subjective Patient is doing slightly better today. She is continuing to have nonproductive cough. Objective - Vital Signs Vital signs: Vital Signs Temp 98.7 F 01/21/17 15:00 Pulse 84 01/21/17 15:27 Resp 20 01/21/17 15:00 BP 120/57 01/21/17 15:00 Pulse Ox 98 01/21/17 15:00 Intake & Output 01/20/17 01/21/17 01/21/17 18:59 06:59 18:59 Intake Total 400 Output Total 1 Balance 399 Weight 65 kg Intake: Oral 400 Output: Urine 1 Other: Voiding Method Diaper Diaper Incontinent Incontinent # Voids 1 2 1 # Bowel Movements 1 - Exam General: The patient is awake and alert, in no distress Eye: there is normal conjunctiva bilaterally. Neck: The neck is supple, there is no JVD. Cardiovascular: Normal S1-S2, no S3-S4, no murmurs. Respiratory: Lungs clear to auscultation bilaterally Gastrointestinal: Abdomen is soft, nontender Musculoskeletal: There is no pedal edema. Neurological:. Speech is normal. Skin: Skin is warm and dry - Labs CBC & Chem 7: 01/21/17 07:18 01/21/17 07:18 Labs: Abnormal Lab Results - Last 24 Hours (Table) 01/21/17 01/21/17 01/21/17 Range/Units 02:35 07:18 07:18 WBC 11.8 H (3.8-10.6) k/uL RBC 3.26 L (3.80-5.40) m/uL Hgb 8.5 L (11.4-16.0) gm/dL Hct 28.1 L (34.0-46.0) % MCHC 30.2 L (31.0-37.0) g/dL RDW 16.0 H (11.5-15.5) % Neutrophils # 10.3 H (1.3-7.7) k/uL Carbon Dioxide 35 H (22-30) mmol/L BUN 34 H (7-17) mg/dL Creatinine 1.22 H (0.52-1.04) mg/dL Plasma Lactic Acid Juvencio 0.5 L (0.7-2.0) mmol/L Microbiology - Last 24 Hours (Table) 01/20/17 08:50 Blood Culture - Preliminary Blood No Growth after 24 hours 01/20/17 08:30 Blood Culture - Preliminary Blood No Growth after 24 hours Assessment and Plan Plan: 1. Right upper lobe pneumonia: Possibly aspiration pneumonia as patient had partial aspiration with a swallow study. She is on broad-spectrum antibiotic. Blood culture sent and negative to date. Infectious disease following closely and adjusting antibiotic regimen, appreciate recommendations.eroids as ordered 3. Acute hypoxic respiratory failure requiring O2 supplement secondary to #1 and 2 4. Underlying dementia, advanced 5. History of paroxysmal atrial fibrillation not a candidate for anticoagulation 6. Hypothyroidism: On levothyroxin 7. Mixed hyperlipidemia 8. Patient is DO NOT RESUSCITATE/DO NOT INTUBATE We will continue supportive care. I discussed her current condition with her son at bedside. Repeat chest x-ray within the next day or 2. Repeat lab work in the morning.
[2017-01-21 17:52] LABS: Appearance,Urine Cloudy (Clear); Bacteria,Urine Moderate /hpf; Bilirubin,Urine Negative (Negative); Glucose,Urine (UA) Negative (Negative); Granular Casts,Urine 1 /lpf (0); Ketones,Urine Negative (Negative); Leukocyte Esterase,Urine Negative (Negative); Mucus,Urine Rare /hpf; Nitrite,Urine Negative (Negative); PH, Urine 5.5 (5.0-8.0); Particle Count 7641; Protein,Urine Trace (Negative); RBC,Urine 1 /hpf (0-5); Specific Gravity,Urine 1.025 (1.001-1.035); Squamous Epithelial Cell,Urine 4 /hpf (0-4); UA Billing (MACRO vs. MICRO) MICRO; Urobilinogen,Urine <2.0 mg/dL (<2.0); WBC,Urine 4 /hpf (0-5)
[2017-01-21] MEDS: risperiDONE 1 MG TAB PO SCH (20:10)
[2017-01-21] MEDS: ASPIRIN 325 MG TAB PO SCH (20:10)
[2017-01-21] MEDS: MONTELUKAST 10 MG TAB PO SCH (20:10)
[2017-01-21] MEDS: PARoxetine 10 MG TAB PO SCH (20:10)
[2017-01-21] MEDS: POLYETHYLENE GLYCOL 3350 17 GM POWD.PACK PO SCH (20:11)
[2017-01-22] MEDS: SODIUM CHLORIDE 0.9% 1,000 ML IV SCH ×2 (03:17→21:16)
[2017-01-22] MEDS: LEVOTHYROXINE 75 MCG TAB PO SCH (06:15)
[2017-01-22] MEDS: BUDESONIDE 0.5 MG/2 ML NEBU INHALATION SCH ×2 (07:05→19:15)
[2017-01-22] MEDS: IPRATROPIUM-ALBUTEROL 3 ML NEB INHALATION SCH ×4 (07:05→19:15)
[2017-01-22 08:51] LABS: Basophils % (A) 0 %; CH 24.5; CHCM 28.2; Eosinophils # (A) 0.1 k/uL (0-0.7); Eosinophils % (A) 1 %; HCT 28.2 % (34.0-46.0); HDW 2.86; HGB 8.1 gm/dL (11.4-16.0); Hypochromasia Marked; Luc # (Auto) 0.17; Luc % (Auto) 1; Lymphocytes # (A) 0.8 k/uL (1.0-4.8); Lymphocytes % (A) 7 %; MCHC 28.7 g/dL (31.0-37.0); MCV 87.2 fL (80.0-100.0); Mean Platelet Volume 7.8; Monocytes # (A) 0.4 k/uL (0-1.0); Monocytes % (A) 3 %; Neutrophils # (A) 10.6 k/uL (1.3-7.7); Neutrophils % (A) 88 %; RBC 3.24 m/uL (3.80-5.40); RDW 15.5 % (11.5-15.5); WBC 12.1 k/uL (3.8-10.6); WBC (Perox) 13.01
[2017-01-22] MEDS: DONEPEZIL 10 MG TAB PO SCH (08:55)
[2017-01-22] MEDS: PANTOPRAZOLE 40 MG TABLET PO SCH (08:55)
[2017-01-22] MEDS: METOPROLOL SUCCINATE (ER) 25 MG TAB.ER.24H PO SCH (08:56)
[2017-01-22] MEDS: HEPARIN SODIUM,PORCINE 5,000 UNIT/ML 1 ML VIAL SQ SCH ×2 (08:57→20:19)
[2017-01-22 09:01] LABS: Calcium 8.4 mg/dL (8.4-10.2); Magnesium 2.1 mg/dL (1.6-2.3)
[2017-01-22] MEDS: DEXTROSE 5% IVPB SCH ×6 (10:50→23:09)
[2017-01-22] MEDS: WATER IVPB SCH ×6 (10:50→23:09)
[2017-01-22] MEDS: PIPERACILLIN TAZOBACTAM IVPB SCH ×6 (10:50→23:09)
--- NOTE | 2017-01-22 15:18 | CDI ---
In responding to this query, please exercise your independent professional judgment. The [facility] Coding Staff and Clinical Documentation Specialists appreciate your assistance in clarifying documentation, maintaining compliance with coding guidelines, accurately documenting patients condition and capturing severity of illness. The fact that a question is asked does not imply that any particular answer is desired or expected. Communication forms are a method of clarifying documentation and are not made part of the Legal Health Record. Thank you in advance for your clarification. Last Revision, September 2015 Jojo Crowe [address] [place] [address] Documentation Clarification Form Date: 01/22/2017 2:56:00 PM From: Chelsey Candelaria RN, CCDS Admit Date: 01/20/2017 7:18:00 AM Patient Name: Prosche Duarte Visit Number: [id number] Dr. Dianne Pereyra History/Risk Factors: Chronic renal disease, recent pneumonia and COPD exacerbation, HTN Clinical Indicators: Patient presents with a BUN: 35/34/33 CR:.87/1.22/1.3 GFR: 0.87/1.22/1.3 01/12/17 Patients baseline BUN: 20/32/38/35 CR: 1.1/1.15/1.12/0.93 GFR: 47/44/46/57 Treatment: IVF: 0.9%NS @ 50 cc/hr In order to capture the severity of condition, please clarify if the condition signifies: Acute renal failure Please specify (if known): Cortical, Medullary, or Tubular Necrosis? Acute kidney injury Acute on chronic renal failure Chronic renal failure, please stage Chronic kidney disease (CKD) and please stage Stage 1 GFR >90 Stage 2 GFR 60-89 Stage 3 GFR 30-59 Stage 4 GFR 15-29 Stage 5 GFR <15 ESRD Unable to determine Other, specify Please document in your progress notes and discharge summary in order to capture severity of illness and risk of mortality. Include clinical findings that support your diagnosis. FYI: Press F11 to launch patient chart. Place X here if this finding has no clinical significance, is not applicable or if you are not able to provide any additional documentation. Acute kidney injury MTDD
--- NOTE | 2017-01-22 16:38 | P.PN ---
Subjective Patient is doing better today. No events overnight. Objective - Vital Signs Vital signs: Vital Signs Temp 96.8 F L 01/22/17 15:00 Pulse 86 01/22/17 15:32 Resp 18 01/22/17 15:00 BP 139/65 01/22/17 15:00 Pulse Ox 100 01/22/17 15:00 Intake & Output 01/21/17 01/22/17 01/22/17 18:59 06:59 18:59 Intake Total 400 240 Output Total 1 Balance 399 240 Intake: Oral 400 240 Output: Urine 1 Other: Voiding Method Diaper Diaper Incontinent Incontinent Incontinent # Voids 1 1 2 # Bowel Movements 0 - Exam General: The patient is awake and alert, in no distress Eye: there is normal conjunctiva bilaterally. Neck: The neck is supple, there is no JVD. Cardiovascular: Normal S1-S2, no S3-S4, no murmurs. Respiratory: Lungs clear to auscultation bilaterally Gastrointestinal: Abdomen is soft, nontender Musculoskeletal: There is no pedal edema. Neurological:. Speech is normal. Skin: Skin is warm and dry - Labs CBC & Chem 7: 01/22/17 07:52 01/22/17 07:52 Labs: Abnormal Lab Results - Last 24 Hours (Table) 01/21/17 01/22/17 01/22/17 Range/Units 11:59 07:52 07:52 WBC 12.1 H (3.8-10.6) k/uL RBC 3.24 L (3.80-5.40) m/uL Hgb 8.1 L (11.4-16.0) gm/dL Hct 28.2 L (34.0-46.0) % MCHC 28.7 L (31.0-37.0) g/dL Neutrophils # 10.6 H (1.3-7.7) k/uL Lymphocytes # 0.8 L (1.0-4.8) k/uL Carbon Dioxide 33 H (22-30) mmol/L BUN 33 H (7-17) mg/dL Creatinine 1.30 H (0.52-1.04) mg/dL Glucose 118 H (74-99) mg/dL Urine Appearance Cloudy H (Clear) Urine Protein Trace H (Negative) Urine Bacteria Moderate H (None) /hpf Urine Mucus Rare H (None) /hpf Microbiology - Last 24 Hours (Table) 01/20/17 08:50 Blood Culture - Preliminary Blood No Growth after 48 hours 01/20/17 08:30 Blood Culture - Preliminary Blood No Growth after 48 hours 01/21/17 12:00 Urine Culture - Preliminary Urine,Voided Assessment and Plan Plan: 1. Right upper lobe pneumonia: Possibly aspiration pneumonia as patient had partial aspiration with a swallow study. She is on broad-spectrum antibiotic. Blood culture sent and negative to date. Infectious disease following closely and adjusting antibiotic regimen, appreciate recommendations.eroids as ordered 3. Acute hypoxic respiratory failure requiring O2 supplement secondary to #1 and 2 4. Underlying dementia, advanced 5. History of paroxysmal atrial fibrillation not a candidate for anticoagulation 6. Hypothyroidism: On levothyroxin 7. Mixed hyperlipidemia 8. Patient is DO NOT RESUSCITATE/DO NOT INTUBATE 9. Mild acute kidney injury: Most likely prerenal. We'll continue to monitor creatinine closely. 10. Aspiration, mild: Continue one-on-one assist with meals. Small bites. Referred to speech pathology recommendations for details. We will continue supportive care. Repeat lab work in the morning. Family updated about her condition. Anticipate discharge home within the next day or 2.
[2017-01-22] MEDS: POLYETHYLENE GLYCOL 3350 17 GM POWD.PACK PO SCH (20:19)
[2017-01-22] MEDS: ASPIRIN 325 MG TAB PO SCH (20:19)
[2017-01-22] MEDS: risperiDONE 1 MG TAB PO SCH (20:19)
[2017-01-22] MEDS: MONTELUKAST 10 MG TAB PO SCH (20:19)
[2017-01-22] MEDS: PARoxetine 10 MG TAB PO SCH (20:19)
--- NOTE | 2017-01-23 05:31 | PN ---
DATE OF SERVICE: 01/22/2017 Reason for followup is aspiration pneumonia. INTERVAL HISTORY: The patient is afebrile. She has been breathing comfortably. Continued to have some occasional cough, but unable to bring any sputum up. No nausea or vomiting has been noticed or any diarrhea. On examination, blood pressure is 139/65 with a pulse of 86, temperature is 96.8. She is 100% on 3 L nasal cannula. General description is an elderly female, lying in bed. in no distress. RESPIRATORY SYSTEM: Unlabored breathing with a coarse breath sounds on the right side, no wheeze. HEART: S1, S2 regular rate and rhythm. ABDOMEN: Soft, no tenderness. EXTREMITIES: No edema of feet. LABS: Hemoglobin 8.1, white count 12.1 with a BUN of 33, creatinine 1.30. Blood culture has been negative so far. Sputum not collected. DIAGNOSTIC IMPRESSION AND PLAN: Patient with right upper lobe aspiration pneumonia. Will try to obtain sputum so we can narrow down antibiotics. Continue the patient on Zosyn at this point along with aspiration precaution. Daughter was present at the beside. Her questions and concerns were answered.
[2017-01-23] MEDS: LEVOTHYROXINE 75 MCG TAB PO SCH (06:25)
[2017-01-23] MEDS: PANTOPRAZOLE 40 MG TABLET PO SCH (07:49)
[2017-01-23] MEDS: HEPARIN SODIUM,PORCINE 5,000 UNIT/ML 1 ML VIAL SQ SCH ×2 (07:49→21:31)
[2017-01-23] MEDS: PIPERACILLIN-TAZOBACTAM 3.375 GM in DEXTROSE/WATER 1 50ML.BAG IVPB SCH ×3 (07:49→23:12)
[2017-01-23] MEDS: METOPROLOL SUCCINATE (ER) 25 MG TAB.ER.24H PO SCH (07:50)
[2017-01-23] MEDS: DONEPEZIL 10 MG TAB PO SCH (07:50)
[2017-01-23] MEDS: IPRATROPIUM-ALBUTEROL 3 ML NEB INHALATION SCH ×4 (08:02→19:10)
[2017-01-23] MEDS: BUDESONIDE 0.5 MG/2 ML NEBU INHALATION SCH ×2 (08:02→19:10)
[2017-01-23 08:09] LABS: Basophils % (A) 0 %; CH 24.8; CHCM 28.8; Eosinophils # (A) 0.2 k/uL (0-0.7); Eosinophils % (A) 2 %; HCT 25.3 % (34.0-46.0); HDW 2.83; HGB 7.3 gm/dL (11.4-16.0); Hypochromasia Marked; Luc # (Auto) 0.25; Luc % (Auto) 3; Lymphocytes # (A) 0.8 k/uL (1.0-4.8); Lymphocytes % (A) 9 %; MCH 25.1 pg (25.0-35.0); MCV 86.4 fL (80.0-100.0); Mean Platelet Volume 8.2; Monocytes # (A) 0.3 k/uL (0-1.0); Monocytes % (A) 4 %; Neutrophils # (A) 8.1 k/uL (1.3-7.7); Neutrophils % (A) 83 %; RBC 2.93 m/uL (3.80-5.40); RDW 15.9 % (11.5-15.5); WBC 9.7 k/uL (3.8-10.6); WBC (Perox) 10.19
[2017-01-23 08:15] LABS: Calcium 8.4 mg/dL (8.4-10.2); Magnesium 2.2 mg/dL (1.6-2.3); Potassium 4.2 mmol/L (3.5-5.1)
--- NOTE | 2017-01-23 12:38 | P.PN ---
Subjective Patient was more lethargic this morning. Currently she is alert and awake. She appears slightly weaker compared to yesterday. Hemoglobin is trending down slowly with no obvious source of bleeding. Objective - Vital Signs Vital signs: Vital Signs Temp 96.7 F L 01/23/17 07:00 Pulse 80 01/23/17 11:29 Resp 18 01/23/17 07:00 BP 143/68 01/23/17 07:00 Pulse Ox 99 01/23/17 07:00 Intake & Output 01/22/17 01/23/17 01/23/17 18:59 06:59 18:59 Intake Total 240 120 Balance 240 120 Weight 65 kg Intake: Oral 240 120 Other: Voiding Method Incontinent Incontinent # Voids 2 1 # Bowel Movements 0 - Exam General: The patient is awake and alert, in no distress Eye: there is normal conjunctiva bilaterally. Neck: The neck is supple, there is no JVD. Cardiovascular: Normal S1-S2, no S3-S4, no murmurs. Respiratory: Lungs clear to auscultation bilaterally Gastrointestinal: Abdomen is soft, nontender Musculoskeletal: There is no pedal edema. Neurological:. Speech is normal. Skin: Skin is warm and dry - Labs CBC & Chem 7: 01/23/17 07:22 01/23/17 07:22 Labs: Abnormal Lab Results - Last 24 Hours (Table) 01/23/17 01/23/17 Range/Units 07:22 07:22 RBC 2.93 L (3.80-5.40) m/uL Hgb 7.3 L (11.4-16.0) gm/dL Hct 25.3 L (34.0-46.0) % MCHC 29.0 L (31.0-37.0) g/dL RDW 15.9 H (11.5-15.5) % Neutrophils # 8.1 H (1.3-7.7) k/uL Lymphocytes # 0.8 L (1.0-4.8) k/uL Carbon Dioxide 33 H (22-30) mmol/L BUN 30 H (7-17) mg/dL Creatinine 1.18 H (0.52-1.04) mg/dL Microbiology - Last 24 Hours (Table) 01/20/17 08:50 Blood Culture - Preliminary Blood No Growth after 72 hours 01/20/17 08:30 Blood Culture - Preliminary Blood No Growth after 72 hours 01/21/17 12:00 Urine Culture - Final Urine,Voided Assessment and Plan Plan: 1. Right upper lobe aspiration pneumonia: patient had partial aspiration with a swallow study. She is IV Zosyn. Unable to obtain sputum sample. Blood culture sent and negative to date. Infectious disease following closely and adjusting antibiotic regimen, appreciate recommendations 3. Acute hypoxic respiratory failure requiring O2 supplement secondary to #1 and 2 4. Underlying dementia, advanced 5. History of paroxysmal atrial fibrillation not a candidate for anticoagulation 6. Hypothyroidism: On levothyroxin 7. Mixed hyperlipidemia 8. Patient is DO NOT RESUSCITATE/DO NOT INTUBATE 9. Mild acute kidney injury: Most likely prerenal. We'll continue to monitor creatinine closely. 10. Aspiration, mild: Continue one-on-one assist with meals. Small bites. Referred to speech pathology recommendations for details. We will continue supportive care. Repeat lab work in the morning. Check iron studies. Family updated about her condition.
[2017-01-23] MEDS: MONTELUKAST 10 MG TAB PO SCH (21:32)
[2017-01-23] MEDS: POLYETHYLENE GLYCOL 3350 17 GM POWD.PACK PO SCH (21:32)
[2017-01-23] MEDS: risperiDONE 1 MG TAB PO SCH (21:32)
[2017-01-23] MEDS: ASPIRIN 325 MG TAB PO SCH (21:32)
[2017-01-23] MEDS: PARoxetine 10 MG TAB PO SCH (21:32)
[2017-01-23] MEDS: SODIUM CHLORIDE 0.9% 1,000 ML IV SCH (21:33)
[2017-01-24] MEDS: LEVOTHYROXINE 75 MCG TAB PO SCH (06:25)
[2017-01-24] MEDS: IPRATROPIUM-ALBUTEROL 3 ML NEB INHALATION SCH ×4 (07:08→19:28)
[2017-01-24] MEDS: BUDESONIDE 0.5 MG/2 ML NEBU INHALATION SCH ×2 (07:08→19:28)
--- NOTE | 2017-01-24 07:40 | PN ---
DATE OF SERVICE: 01/23/2017 Reason for follow up is aspiration pneumonia. INTERVAL HISTORY: The patient is afebrile. She has been breathing comfortably. Continues to have some congested cough, but not bringing any sputum up. No nausea or vomiting has been noticed. No diarrhea. On examination, blood pressure is 161/78 with a pulse of 84, temperature 96.8. She is 98% on 2 liters nasal cannula. General description is an elderly female lying in bed in no distress. RESPIRATORY SYSTEM: Unlabored breathing. Some coarse breath sounds at the base. No wheeze. HEART: S1, S2. Regular rate and rhythm. ABDOMEN: Soft, no tenderness. LABS: Hemoglobin is 10.8, white count normalized to 9.7 with a BUN of 30, creatinine 1.18. Blood culture has been negative. No sputum was collected. DIAGNOSTIC IMPRESSION AND PLAN: Patient with right lower lobe aspiration pneumonia. Patient seems to have shown some clinical improvement as her white count is normal and blood culture has been negative. No sputum was collected. Plan will be to finish therapy with p.o. Avelox 400 daily for another 10 days with strict aspiration precautions. Continue supportive care.
[2017-01-24] MEDS: DONEPEZIL 10 MG TAB PO SCH (07:57)
[2017-01-24] MEDS: PIPERACILLIN-TAZOBACTAM 3.375 GM in DEXTROSE/WATER 1 50ML.BAG IVPB SCH ×3 (07:58→23:23)
[2017-01-24] MEDS: METOPROLOL SUCCINATE (ER) 25 MG TAB.ER.24H PO SCH (07:58)
[2017-01-24] MEDS: PANTOPRAZOLE 40 MG TABLET PO SCH (07:58)
[2017-01-24] MEDS: HEPARIN SODIUM,PORCINE 5,000 UNIT/ML 1 ML VIAL SQ SCH ×2 (07:59→19:48)
[2017-01-24 09:10] LABS: Basophils % (A) 0 %; CH 24.4; CHCM 27.8; Eosinophils # (A) 0.2 k/uL (0-0.7); Eosinophils % (A) 3 %; HCT 27.7 % (34.0-46.0); HDW 2.88; HGB 7.8 gm/dL (11.4-16.0); Hypochromasia Marked; Luc # (Auto) 0.27; Luc % (Auto) 3; Lymphocytes # (A) 0.9 k/uL (1.0-4.8); Lymphocytes % (A) 10 %; MCH 24.8 pg (25.0-35.0); MCHC 28.2 g/dL (31.0-37.0); MCV 87.7 fL (80.0-100.0); Mean Platelet Volume 7.8; Monocytes # (A) 0.3 k/uL (0-1.0); Monocytes % (A) 4 %; Neutrophils # (A) 7.1 k/uL (1.3-7.7); Neutrophils % (A) 81 %; RBC 3.16 m/uL (3.80-5.40); RDW 15.5 % (11.5-15.5); WBC 8.8 k/uL (3.8-10.6); WBC (Perox) 8.94
[2017-01-24 10:59] LABS: Anion Gap 8 mmol/L; Blood Urea Nitrogen 25 mg/dL (7-17); Calcium 8.9 mg/dL (8.4-10.2); Carbon Dioxide 31 mmol/L (22-30); Chloride 105 mmol/L (98-107); Glucose 86 mg/dL (74-99); Iron 28 ug/dL (37-170); Magnesium 2.2 mg/dL (1.6-2.3); Non-African American GFR(MDRD) 52 (>60 ml/min/1.73 sqM); Potassium 4.4 mmol/L (3.5-5.1); Sodium 144 mmol/L (137-145)
[2017-01-24 11:16] LABS: % Iron Saturation 11.9 % (20-50); Total Iron Binding Capacity 236 ug/dL (265-497)
--- NOTE | 2017-01-24 12:33 | P.PN ---
Subjective Is a 11-year-old female presented with worsening cough and chest pain. Found to have right upper lobe infiltrate on chest x-ray. Failed her swallow eval. She is being treated for an aspiration pneumonia. Currently on IV Zosyn. Patient still having some wheezing and shortness of breath. Denies any chest pain. Denies any nausea or vomiting. Denies any bowel movement changes or urinary symptoms Objective - Vital Signs Vital signs: Vital Signs Temp 97.8 F 01/24/17 07:00 Pulse 80 01/24/17 11:15 Resp 18 01/24/17 07:00 BP 147/67 01/24/17 07:00 Pulse Ox 100 01/24/17 07:00 Intake & Output 01/23/17 01/24/17 01/24/17 18:59 06:59 18:59 Intake Total 120 100 Balance 120 100 Weight 65 kg Intake: Oral 120 100 Other: Voiding Method Incontinent Incontinent # Voids 2 1 # Bowel Movements 1 1 - Exam Head normocephalic Neck supple Lungs wheezing anteriorly Heart regular rate and rhythm S1-S2, no rub or gallop Abdomen is soft nontender nondistended positive bowel sounds no hepatosplenomegaly Extremities no edema Neuro alert and orientated to 3 - Labs CBC & Chem 7: 01/24/17 08:03 01/24/17 08:03 Labs: Abnormal Lab Results - Last 24 Hours (Table) 01/24/17 01/24/17 Range/Units 08:03 08:03 RBC 3.16 L (3.80-5.40) m/uL Hgb 7.8 L (11.4-16.0) gm/dL Hct 27.7 L (34.0-46.0) % MCH 24.8 L (25.0-35.0) pg MCHC 28.2 L (31.0-37.0) g/dL Lymphocytes # 0.9 L (1.0-4.8) k/uL Carbon Dioxide 31 H (22-30) mmol/L BUN 25 H (7-17) mg/dL Iron 28 L (37-170) ug/dL TIBC 236 L (265-497) ug/dL % Saturation 11.9 L (20-50) % Microbiology - Last 24 Hours (Table) 01/20/17 08:50 Blood Culture - Preliminary Blood No Growth after 96 hours 01/20/17 08:30 Blood Culture - Preliminary Blood No Growth after 96 hours Assessment and Plan Plan: 1. Right upper lobe aspiration pneumonia: patient had partial aspiration with a swallow study. She is IV Zosyn. Unable to obtain sputum sample. Blood culture sent and negative to date. Infectious diseases recommending Avelox 400 mg daily for 10 days at discharge 3. Acute hypoxic respiratory failure requiring O2 supplement secondary to #1 4. Underlying dementia, advanced 5. History of paroxysmal atrial fibrillation not a candidate for anticoagulation 6. Hypothyroidism: On levothyroxine 7. Mixed hyperlipidemia 8. Patient is DO NOT RESUSCITATE/DO NOT INTUBATE 9. Mild acute kidney injury: Most likely prerenal. We'll continue to monitor creatinine closely. Kidney functions have shown improvement. Continue to monitor 10. Aspiration, mild: Continue one-on-one assist with meals. Small bites. Referred to speech pathology recommendations for details. 11. Iron deficiency anemia: Hemoglobin is up to 7.8. Iron level low at 28. Start ferrous sulfate 325 mg twice a day 12. Physical debility: Consult physical therapy
[2017-01-24] MEDS: FERROUS SULFATE 325 MG TAB PO SCH ×2 (14:15→19:48)
[2017-01-24] MEDS: SODIUM CHLORIDE 0.9% 1,000 ML IV SCH (14:15)
[2017-01-24] MEDS ORDERED: SODIUM FERRIC GLUCONAT-SUCROSE 125 MG in SODIUM CHLORIDE 0.9% 100 ML IVPB ONE (16:00)
--- NOTE | 2017-01-24 19:41 | PN ---
DATE OF SERVICE: 01/24/2017 REASON FOR FOLLOWUP: Aspiration pneumonia. INTERVAL HISTORY: The patient is afebrile. She is currently breathing comfortably. She continues to have a congested cough but not bringing up any sputum, per the family member present at the bedside. No nausea or vomiting has been noticed or any diarrhea. On examination, her blood pressure is 163/71 with a pulse of 77, temperature of 98.8. She is 98% on 2 L nasal cannula. General description is an elderly female lying in bed in no distress. RESPIRATORY SYSTEM: Unlabored breathing with coarse breath sounds on the right side. No wheeze. HEART: S1, S2. Regular rate and rhythm. ABDOMEN: Soft. No tenderness. LABS: Hemoglobin is 7.8, white count 8.8 with a BUN of 25, creatinine 1.00. Blood culture has been negative. Sputum not collected. DIAGNOSTIC IMPRESSION AND PLAN: Patient admitted to hospital with a congested cough with infiltrate on the right side, likely an episode of aspiration pneumonia. The patient's white count normalized with addition of Zosyn. That will be continued. PLAN: Finish therapy with p.o. Avelox with close observation when feeding to prevent any recurrent aspiration. Daughter was present at bedside. Her questions were answered.
[2017-01-24] MEDS: PARoxetine 10 MG TAB PO SCH (19:47)
[2017-01-24] MEDS: ASPIRIN 325 MG TAB PO SCH (19:47)
[2017-01-24] MEDS: MONTELUKAST 10 MG TAB PO SCH (19:47)
[2017-01-24] MEDS: POLYETHYLENE GLYCOL 3350 17 GM POWD.PACK PO SCH (19:48)
[2017-01-24] MEDS: risperiDONE 1 MG TAB PO SCH (19:48)
[2017-01-25] MEDS: LEVOTHYROXINE 75 MCG TAB PO SCH (06:26)
[2017-01-25] MEDS: PIPERACILLIN-TAZOBACTAM 3.375 GM in DEXTROSE/WATER 1 50ML.BAG IVPB SCH ×3 (08:01→23:02)
[2017-01-25] MEDS: METOPROLOL SUCCINATE (ER) 25 MG TAB.ER.24H PO SCH (08:02)
[2017-01-25] MEDS: HEPARIN SODIUM,PORCINE 5,000 UNIT/ML 1 ML VIAL SQ SCH ×2 (08:02→20:32)
[2017-01-25] MEDS: FERROUS SULFATE 325 MG TAB PO SCH ×2 (08:03→20:32)
[2017-01-25] MEDS: PANTOPRAZOLE 40 MG TABLET PO SCH (08:03)
[2017-01-25] MEDS: DONEPEZIL 10 MG TAB PO SCH (08:03)
[2017-01-25 08:12] LABS: Anion Gap 8 mmol/L; Blood Urea Nitrogen 19 mg/dL (7-17); Calcium 9.1 mg/dL (8.4-10.2); Carbon Dioxide 31 mmol/L (22-30); Chloride 105 mmol/L (98-107); Glucose 82 mg/dL (74-99); Magnesium 2.1 mg/dL (1.6-2.3); Non-African American GFR(MDRD) 51 (>60 ml/min/1.73 sqM); Potassium 4.4 mmol/L (3.5-5.1); Sodium 144 mmol/L (137-145)
[2017-01-25] MEDS: BUDESONIDE 0.5 MG/2 ML NEBU INHALATION SCH ×2 (08:16→19:23)
[2017-01-25] MEDS: IPRATROPIUM-ALBUTEROL 3 ML NEB INHALATION SCH ×4 (08:16→19:23)
[2017-01-25 10:21] LABS: Basophils % (A) 0 %; CH 24.3; CHCM 27.8; Eosinophils # (A) 0.3 k/uL (0-0.7); Eosinophils % (A) 3 %; HCT 28.2 % (34.0-46.0); HDW 2.88; HGB 7.8 gm/dL (11.4-16.0); Hypochromasia Marked; Luc # (Auto) 0.27; Luc % (Auto) 3; Lymphocytes # (A) 1.1 k/uL (1.0-4.8); Lymphocytes % (A) 12 %; MCH 24.3 pg (25.0-35.0); MCV 87.7 fL (80.0-100.0); Mean Platelet Volume 7.9; Monocytes # (A) 0.5 k/uL (0-1.0); Monocytes % (A) 5 %; Neutrophils % (A) 77 %; RBC 3.21 m/uL (3.80-5.40); RDW 15.5 % (11.5-15.5); WBC 9.1 k/uL (3.8-10.6); WBC (Perox) 8.88
[2017-01-25 10:23] LABS: MCHC 27.7 g/dL (31.0-37.0)
[2017-01-25] MEDS: SODIUM CHLORIDE 0.9% 1,000 ML IV SCH (11:56)
--- NOTE | 2017-01-25 12:42 | P.PN ---
Subjective Principal diagnosis: Pneumonia Patient is 89-year-old female patient of venting was cough and shortness of breath chest x-ray revealed right upper lobe infiltrate likely aspiration pneumonia. Today she is feeling better she is still complaining of cough she is complaining of right upper chest pain when she coughs otherwise no complaints at this time Objective - Vital Signs Vital signs: Vital Signs Temp 96.7 F L 01/25/17 07:00 Pulse 84 01/25/17 11:54 Resp 20 01/25/17 07:00 BP 194/82 01/25/17 07:00 Pulse Ox 97 01/25/17 07:00 Intake & Output 01/24/17 01/25/17 01/25/17 18:59 06:59 18:59 Intake Total 400 Balance 400 Intake: Oral 400 Other: Voiding Method Incontinent Incontinent Incontinent # Voids 2 2 # Bowel Movements 1 - Exam HEENT head normocephalic and atraumatic Neck is supple no JVD no goiter no lymphadenopathy Chest exam reveals a crackles bilaterally no wheezing Cardiac exam reveals regular heart sounds no gallops no murmurs Abdomen is soft nontender no organomegaly Extremity exam reveals no edema no cyanosis or clubbing - Labs CBC & Chem 7: 01/25/17 07:35 01/25/17 07:35 Labs: Abnormal Lab Results - Last 24 Hours (Table) 01/25/17 01/25/17 Range/Units 07:35 07:35 RBC 3.21 L (3.80-5.40) m/uL Hgb 7.8 L (11.4-16.0) gm/dL Hct 28.2 L (34.0-46.0) % MCH 24.3 L (25.0-35.0) pg MCHC 27.7 L (31.0-37.0) g/dL Carbon Dioxide 31 H (22-30) mmol/L BUN 19 H (7-17) mg/dL Microbiology - Last 24 Hours (Table) 01/20/17 08:50 Blood Culture - Preliminary Blood No Growth after 120 hours 01/20/17 08:30 Blood Culture - Preliminary Blood No Growth after 120 hours Assessment and Plan Plan: 1. Right upper lobe aspiration pneumonia: patient had partial aspiration with a swallow study. She is IV Zosyn. Unable to obtain sputum sample. Blood culture sent and negative to date. Infectious diseases recommending Avelox 400 mg daily for 10 days at discharge 3. Acute hypoxic respiratory failure requiring O2 supplement secondary to #1 4. Underlying dementia, advanced 5. History of paroxysmal atrial fibrillation not a candidate for anticoagulation 6. Hypothyroidism: On levothyroxine 7. Mixed hyperlipidemia 8. Patient is DO NOT RESUSCITATE/DO NOT INTUBATE 9. Mild acute kidney injury: Most likely prerenal. We'll continue to monitor creatinine closely. Kidney functions have shown improvement. Continue to monitor 10. Aspiration, mild: Continue one-on-one assist with meals. Small bites. Referred to speech pathology recommendations for details. 11. Iron deficiency anemia: Hemoglobin is up to 7.8. Iron level low at 28. Start ferrous sulfate 325 mg twice a day 12. Physical debility: Consult physical therapy Patient lives at an [facility] continue was current management with IV antibiotic patient will return to the [facility] when ready. Case discussed with patient and her daughter at the bedside.
[2017-01-25] MEDS ORDERED: ACETAMINOPHEN TAB 500 MG TAB PO PRN (15:03)
[2017-01-25] MEDS: ASPIRIN 325 MG TAB PO SCH (20:31)
[2017-01-25] MEDS: MONTELUKAST 10 MG TAB PO SCH (20:32)
[2017-01-25] MEDS: POLYETHYLENE GLYCOL 3350 17 GM POWD.PACK PO SCH (20:32)
[2017-01-25] MEDS: PARoxetine 10 MG TAB PO SCH (20:32)
[2017-01-25] MEDS: risperiDONE 1 MG TAB PO SCH (20:32)
[2017-01-26] MEDS: LEVOTHYROXINE 75 MCG TAB PO SCH (06:27)
[2017-01-26] MEDS: SODIUM CHLORIDE 0.9% 1,000 ML IV SCH (06:28)
[2017-01-26] MEDS: BUDESONIDE 0.5 MG/2 ML NEBU INHALATION SCH ×2 (07:11→21:20)
[2017-01-26] MEDS: IPRATROPIUM-ALBUTEROL 3 ML NEB INHALATION SCH ×4 (07:11→21:20)
[2017-01-26 08:21] LABS: Basophils % (A) 1 %; CH 24.3; CHCM 27.6; Eosinophils # (A) 0.2 k/uL (0-0.7); Eosinophils % (A) 2 %; HCT 29.5 % (34.0-46.0); HDW 2.88; HGB 8.3 gm/dL (11.4-16.0); Hypochromasia Marked; Luc % (Auto) 4; Lymphocytes # (A) 1.2 k/uL (1.0-4.8); Lymphocytes % (A) 15 %; MCH 24.8 pg (25.0-35.0); MCHC 28.1 g/dL (31.0-37.0); MCV 88.3 fL (80.0-100.0); Mean Platelet Volume 7.2; Monocytes # (A) 0.3 k/uL (0-1.0); Monocytes % (A) 4 %; Neutrophils % (A) 74 %; RBC 3.34 m/uL (3.80-5.40); RDW 15.6 % (11.5-15.5); WBC 8.1 k/uL (3.8-10.6)
[2017-01-26] MEDS: PIPERACILLIN-TAZOBACTAM 3.375 GM in DEXTROSE/WATER 1 50ML.BAG IVPB SCH ×3 (08:30→22:55)
[2017-01-26] MEDS: HEPARIN SODIUM,PORCINE 5,000 UNIT/ML 1 ML VIAL SQ SCH ×2 (08:31→20:59)
[2017-01-26] MEDS: DONEPEZIL 10 MG TAB PO SCH (08:33)
[2017-01-26] MEDS: PANTOPRAZOLE 40 MG TABLET PO SCH (08:33)
[2017-01-26] MEDS: FERROUS SULFATE 325 MG TAB PO SCH ×2 (08:33→20:59)
[2017-01-26] MEDS: METOPROLOL SUCCINATE (ER) 25 MG TAB.ER.24H PO SCH (08:33)
[2017-01-26 08:35] LABS: ALT 29 U/L (9-52); AST 18 U/L (14-36); Alkaline Phosphatase 86 U/L (38-126); Anion Gap 6 mmol/L; Blood Urea Nitrogen 20 mg/dL (7-17); Carbon Dioxide 29 mmol/L (22-30); Chloride 108 mmol/L (98-107); Glucose 83 mg/dL (74-99); Non-African American GFR(MDRD) 53 (>60 ml/min/1.73 sqM); Potassium 4.2 mmol/L (3.5-5.1); Sodium 143 mmol/L (137-145); Total Bilirubin 0.4 mg/dL (0.2-1.3)
--- NOTE | 2017-01-26 12:51 | P.PN ---
Subjective Principal diagnosis: Pneumonia Patient is 89-year-old female resident of [facility] admitted with cough and shortness of breath chest x-ray revealed right upper lobe infiltrate likely aspiration pneumonia. Today she is feeling better she is still complaining of cough she is complaining of right upper chest pain when she coughs otherwise no complaints at this time Objective - Vital Signs Vital signs: Vital Signs Temp 96.5 F L 01/26/17 07:00 Pulse 90 01/26/17 11:19 Resp 16 01/26/17 07:00 BP 138/87 01/26/17 07:00 Pulse Ox 87 L 01/26/17 07:00 Intake & Output 01/25/17 01/26/17 01/26/17 17:59 06:59 18:59 Intake Total Balance Intake: Oral Other: Voiding Method Incontinent # Voids 1 # Bowel Movements - Exam HEENT head normocephalic and atraumatic Neck is supple no JVD no goiter no lymphadenopathy Chest exam reveals a crackles bilaterally no wheezing Cardiac exam reveals regular heart sounds no gallops no murmurs Abdomen is soft nontender no organomegaly Extremity exam reveals no edema no cyanosis or clubbing - Labs CBC & Chem 7: 01/26/17 07:32 01/26/17 07:32 Labs: Abnormal Lab Results - Last 24 Hours (Table) 01/26/17 01/26/17 Range/Units 07:32 07:32 RBC 3.34 L (3.80-5.40) m/uL Hgb 8.3 L (11.4-16.0) gm/dL Hct 29.5 L (34.0-46.0) % MCH 24.8 L (25.0-35.0) pg MCHC 28.1 L (31.0-37.0) g/dL RDW 15.6 H (11.5-15.5) % Chloride 108 H (98-107) mmol/L BUN 20 H (7-17) mg/dL Total Protein 6.0 L (6.3-8.2) g/dL Albumin 2.7 L (3.5-5.0) g/dL Microbiology - Last 24 Hours (Table) 01/20/17 08:50 Blood Culture - Final Blood No Growth after 144 hours 01/20/17 08:30 Blood Culture - Final Blood No Growth after 144 hours Assessment and Plan Plan: 1. Right upper lobe aspiration pneumonia: patient had partial aspiration with a swallow study. She is IV Zosyn. Unable to obtain sputum sample. Blood culture sent and negative to date. Infectious diseases recommending Avelox 400 mg daily for 10 days at discharge 3. Acute hypoxic respiratory failure requiring O2 supplement secondary to #1 4. Underlying dementia, advanced 5. History of paroxysmal atrial fibrillation not a candidate for anticoagulation 6. Hypothyroidism: On levothyroxine 7. Mixed hyperlipidemia 8. Patient is DO NOT RESUSCITATE/DO NOT INTUBATE 9. Mild acute kidney injury: Most likely prerenal. We'll continue to monitor creatinine closely. Kidney functions have shown improvement. Continue to monitor 10. Aspiration, mild: Continue one-on-one assist with meals. Small bites. Referred to speech pathology recommendations for details. 11. Iron deficiency anemia: Hemoglobin is up to 7.8. Iron level low at 28. Start ferrous sulfate 325 mg twice a day 12. Physical debility: Consult physical therapy Patient lives at an [facility] continue was current management with IV antibiotic patient will return to the [facility] when ready. Case discussed with patient and her daughter at the bedside.
--- NOTE | 2017-01-26 13:23 | XR ---
EXAMINATION TYPE: XR chest 2V DATE OF EXAM: 01/26/2017 1:13 PM COMPARISON: Chest x-ray January 21, 2017 HISTORY: Pneumonia progress study. TECHNIQUE: Frontal and lateral views of the chest are obtained. FINDINGS: There is redemonstration of low lung volumes and elevated right hemidiaphragm with reticul onodular interstitial opacities bilaterally again seen. There is no suspicious new focal airspace opa city, pleural effusion, or pneumothorax identified bilaterally The cardiac silhouette size is within normal limits with atherosclerotic thoracic aorta. The osseous structures are demineralized. Degene rative changes bilateral acromioclavicular joints are noted. IMPRESSION: Persistent reticulonodular infiltrates and/or scarring bilaterally, no new suspicious fo andi infiltrate is seen.
[2017-01-26] MEDS: POLYETHYLENE GLYCOL 3350 17 GM POWD.PACK PO SCH (20:59)
[2017-01-26] MEDS: PARoxetine 10 MG TAB PO SCH (20:59)
[2017-01-26] MEDS: risperiDONE 1 MG TAB PO SCH (20:59)
[2017-01-26] MEDS: MONTELUKAST 10 MG TAB PO SCH (21:00)
[2017-01-26] MEDS: ASPIRIN 325 MG TAB PO SCH (21:00)
[2017-01-27] MEDS: SODIUM CHLORIDE 0.9% 1,000 ML IV SCH (03:06)
[2017-01-27] MEDS: LEVOTHYROXINE 75 MCG TAB PO SCH (06:33)
[2017-01-27] MEDS: BUDESONIDE 0.5 MG/2 ML NEBU INHALATION SCH (07:16)
[2017-01-27] MEDS: IPRATROPIUM-ALBUTEROL 3 ML NEB INHALATION SCH ×2 (07:16→11:23)
[2017-01-27] MEDS: PIPERACILLIN-TAZOBACTAM 3.375 GM in DEXTROSE/WATER 1 50ML.BAG IVPB SCH (08:28)
[2017-01-27] MEDS: HEPARIN SODIUM,PORCINE 5,000 UNIT/ML 1 ML VIAL SQ SCH (08:29)
[2017-01-27] MEDS: METOPROLOL SUCCINATE (ER) 25 MG TAB.ER.24H PO SCH (08:31)
[2017-01-27] MEDS: PANTOPRAZOLE 40 MG TABLET PO SCH (08:32)
[2017-01-27] MEDS: DONEPEZIL 10 MG TAB PO SCH (08:32)
[2017-01-27] MEDS: FERROUS SULFATE 325 MG TAB PO SCH (08:32)
[2017-01-27 08:41] VITALS: BP 161/84; RESP 19; TEMP 97.2
--- NOTE | 2017-01-27 10:54 | PN ---
DATE OF SERVICE: 01/26/2017 Reason for followup is pneumonia aspiration. INTERVAL HISTORY: The patient is afebrile. She continues to have some congested cough, but not bringing up any sputum. The patient with no nausea, no vomiting. On examination, blood pressure is 158/71 with a pulse of 71, temperature 96.9, she is 98% on 2L nasal cannula. General description is an elderly female, lying in bed in no distress. RESPIRATORY SYSTEM: Unlabored breathing with some coarse breath sounds on the right side. No wheeze. HEART: S1, S2. Regular rate and rhythm. ABDOMEN: Soft, no tenderness. LABS: Hemoglobin 8.3, white count 8.1 with a BUN of 20, creatinine 0.98. Blood culture has been negative. Sputum not collected. Chest x-ray with residual retrocardiac infiltrate. DIAGNOSTIC IMPRESSION AND PLAN: Patient with a left-sided pneumonia, likely aspiration in etiology. Patient's white count has normalized on the Zosyn. Blood culture has been negative and no sputum was collected. Patient to continue with aspiration precautions to prevent any recurrent aspiration and will be able to finish therapy with p.o. Avelox. Son was present at beside. All his questions were answered.
[2017-01-27 11:34] VITALS: PULSE 68
--- NOTE | 2017-01-27 13:38 | P.DS ---
Providers Date of admission: 01/20/17 07:18 Expected date of discharge: 01/27/17 Attending physician: Dianne Pereyra Consults: 01/20/17 11:13 Consult Physician Routine Consulting Provider: Anny Pritchard Consult Reason/Comments: Aspiration pneumonia? Do you want consulting provider notified?: Yes [facility] Course: 1. Right upper lobe aspiration pneumonia: patient had partial aspiration with a swallow study. She received IV Zosyn for 7 days in the hospital. Unable to obtain sputum sample. Blood culture sent and negative to date. Infectious disease consulted. Will finish 7 days course of antibiotic with Augmentin at home 3. Acute hypoxic respiratory failure requiring O2 supplement secondary to #1 and 2 4. Underlying dementia, advanced 5. History of paroxysmal atrial fibrillation not a candidate for anticoagulation 6. Hypothyroidism: On levothyroxin 7. Mixed hyperlipidemia 8. Patient is DO NOT RESUSCITATE/DO NOT INTUBATE 9. Mild acute kidney injury: Most likely prerenal. We'll continue to monitor creatinine closely. 10. Aspiration, mild: Continue one-on-one assist with meals. Small bites. Referred to speech pathology recommendations for details. Patient will be discharged back to assisted living with visiting nurses. Plan - Discharge Summary New Discharge Prescriptions: Amoxicillin/Potassium Clav [Augmentin 500-125 Tablet] 1 tab PO Q12HR #10 tab Ferrous Sulfate [Iron (65 MG Elemental)] 325 mg PO BID #60 tab Discharge Medication List risperiDONE [RisperDAL] 1 mg PO HS@199904/20/14 [History] Budesonide [Pulmicort] 0.5 mg INHALATION RT-BID@08,199903/16/15 [History] PARoxetine HCL [Paxil] 30 mg PO HS@199911/26/15 [History] Montelukast Sodium [Singulair] 10 mg PO HS@199912/27/15 [History] Levothyroxine Sodium [Synthroid] 75 mcg PO DAILY@0605/20/16 [History] Polyethylene Glycol 3350 17 gram PO HS@199905/20/16 [History] Metoprolol Succinate (ER) [Toprol XL] 12.5 mg PO DAILY@0800 06/09/16 [History] Aspirin 325 mg PO DAILY@199901/12/17 [History] Docusate [Colace] 100 mg PO DAILY PRN 01/12/17 [History] Omeprazole 20 mg PO DAILY@0801/12/17 [History] SILVER sulfADIAZINE CREAM [Silvadene Cream] 1 applic TOPICAL BID@799,01/12 [History] guaiFENesin SYRUP 100MG/5ML [Robitussin] 200 mg PO Q4H PRN 01/12/17 [History] Albuterol Nebulized [Ventolin Nebulized] 2.5 mg INHALATION RT-QID PRN 01/13/17 [ History] Artificial Tears-Hypromellose [Artificial Tear Drops] 2 drops BOTH EYES Q2H PRN 01/13/17 [History] Atropine Sulfate [Atropine Sulfate 1%] 2 drop SUBLINGUAL Q4H PRN 01/13/17 [ History] Donepezil HCl [Aricept ODT] 10 mg PO DAILY@0801/13/17 [History] Amoxicillin/Potassium Clav [Augmentin 500-125 Tablet] 1 tab PO Q12HR #10 tab [Rx] Bisacodyl [Dulcolax] 10 mg RECTAL Q8HR PRN #0 01/27/17 [Rx] Ferrous Sulfate [Iron (65 MG Elemental)] 325 mg PO BID #60 tab 01/27/17 [Rx] Follow up Appointment(s)/Referral(s): [facility], [NON-STAFF] - Dianne Pereyra MD [Primary Care Provider] - 1-2 days Discharge Disposition: HOME WITH HOME HEALTH SERVICES
--- NOTE | 2017-01-27 16:48 | PN ---
DATE OF SERVICE: 01/27/2017 REASON FOR FOLLOWUP: Aspiration pneumonia. INTERVAL HISTORY: The patient is afebrile. She is more awake and alert today. She is breathing comfortably. She still has a congested cough but not bringing up any sputum. She did eat some breakfast this morning per her son. No nausea, vomiting or any diarrhea. On examination, blood pressure is 161/84 with a pulse of 60, temperature 97.2. She is 98% on 2 L nasal cannula. General description is an elderly female up in the chair in no distress. RESPIRATORY SYSTEM: Unlabored breathing. Some decreased breath sounds at the base. No wheeze. HEART: S1, S2. Regular rate and rhythm. ABDOMEN: Soft. No tenderness. LABS: Hemoglobin 8.3, white count 8.1 with a BUN of 20, creatinine 0.98. Blood culture has been negative. No sputum was collected. DIAGNOSTIC IMPRESSION AND PLAN: Patient admitted to hospital with congestive cough with evidence of new infiltrate on the left side, likely component of aspiration pneumonia. Patient seems to be showing clinical improvement, as her white count has normalized. X-ray findings were persistent. Will recommend strict aspiration precautions. Continue Zosyn and finish therapy with p.o. Avelox 400 daily for another 10 days. Son was present at the bedside. All his questions and concerns were answered.
== END 2017-01-27 15:32 | disposition home health service (06) | DRG 177 ==
LOC: EC 06:11 → 4MS4W 07:18
PROVIDERS: ADMIT Internal Medicine; ATTEND Internal Medicine
DX: J69.0 Pneumonitis due to inhalation of food and vomit (principal); J96.01 Acute respiratory failure with hypoxia; N17.9 Acute kidney failure, unspecified; J44.1 Chronic obstructive pulmonary disease with (acute) exacerbation; F03.90 Unspecified dementia, unspecified severity, without behavioral disturbance, psychotic disturbance, mood disturbance, and anxiety; I48.0 Paroxysmal atrial fibrillation; G20 Parkinson's disease; G40.909 Epilepsy, unspecified, not intractable, without status epilepticus; I12.9 Hypertensive chronic kidney disease with stage 1 through stage 4 chronic kidney disease, or unspecified chronic kidney disease; E03.9 Hypothyroidism, unspecified; E78.2 Mixed hyperlipidemia; Z66 Do not resuscitate; J45.909 Unspecified asthma, uncomplicated; D50.9 Iron deficiency anemia, unspecified; K21.9 Gastro-esophageal reflux disease without esophagitis; H91.90 Unspecified hearing loss, unspecified ear; M10.9 Gout, unspecified; H40.9 Unspecified glaucoma; N18.9 Chronic kidney disease, unspecified; M19.90 Unspecified osteoarthritis, unspecified site; Z86.73 Personal history of transient ischemic attack (TIA), and cerebral infarction without residual deficits; Z99.3 Dependence on wheelchair; Z87.891 Personal history of nicotine dependence; Z79.82 Long term (current) use of aspirin; Z79.51 Long term (current) use of inhaled steroids; Z79.899 Other long term (current) drug therapy
CPT/HCPCS: 36415; 71020; 74230; 80048; 80053; 81001; 82550; 82553; 83540; 83550; 83605; 83735; 84484; 85025; 85379; 85610; 85730; 87040; 87086; 93005; 94640; 94760; 96365; 96375; 99285